=== PATIENT | male | born 1965 | race Caucasian/White ===

== ENCOUNTER 2024-08-16 14:56 | Emergency (ER) | payer OTHER, SELFPAY ==
[2024-08-16 15:01] VITALS: BP 113/75; PULSE 74; RESP 16; TEMP 36.6; O2SAT 99
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
--- OUTSIDE RECORDS SUMMARY | 2024-08-16 17:30 | XMS_ITS | Clinical Summary ---
Author Organization [facility] Address [address] [place] [id number] Care Team Providers Care Division Controller Name Role Phone Unavailable Primary Care Provider Unavailabl e Allergies No known active allergies Medications No known medications Active Problems No known active problems Social History Tobacco Use Types Packs/Day Years Used Date Smoking Tobacco: Never Assessed Sex and Gender Information Value Date Recorded Sex Assigned at Not on file Legal Sex Male 3:28 PM CDT Gender Identity Not on file Sexual Orientation Not on file Last Filed Vital Signs Vital Sign Reading Time Taken Comments Blood Pressure 112/69 06/23/2020 3:46 PM CDT Pulse 76 06/23/2020 3:46 PM CDT Temperature 36.8 C (98.2 F) 06/23/2020 3:46 PM CDT Respiratory Rate 16 06/23/2020 3:46 PM CDT Oxygen Saturation 95% 06/23/2020 3:46 PM CDT Inhaled Oxygen Concentration - - Weight - - Height - - Body Mass Index - - Plan of Treatment Health Maintenance Due Date Last Done Comments DTAP/TDAP/TD VACCINES (1 - Tdap) 1983 COLORECTAL SCREENING 2009 Colorectal Cancer Screening 2009 FIT-DNA Q 3 years 2009 FIT/FOBT Q 1 year 2009 Flex Sig/CT Colonography Q 5 years 2009 ZOSTER VACCINE (1 of 2) 2014 INFLUENZA VACCINE (#1) 2023 RSV VACCINE (60+ or ) (1 - 1-dose 75+ series) 2039 HEPATITIS B VACCINES Aged Out No long er eligible based on patient's age to complete this topic Insurance #1 [place] [id number] [employer] [place] H[place] POS #[address] [place] [id number]
--- OUTSIDE RECORDS SUMMARY | 2024-08-16 17:30 | XMS_ITS | Clinical Summary ---
Author Organization [facility] Address [address] [place] [address] Care Team Providers Care Client Account Representative Name Role Phone Guru Lynch MD Primary Care Provider [phone] Gerardo Champagne MD Unavailable [phone] Abhijit Hall MD Unavailable Allergies No known active allergies Medications ALPRAZolam (XANAX) 1 mg tablet Take 1 tablet (1 mg total) by mouth 3 (three) times a day as needed 3 Active iron,carb/vit C/vit B12/folic (IRON 100 PLUS ORAL) Take 1 tablet by mouth every other day Active escitalopram (LEXAPRO) 20 mg tablet Take 1 tablet (20 mg total) by mouth daily Active acamprosate DR (CAMPRAL) 333 mg EC tablet Take 2 tablets (666 mg total) by mouth 3 (three) times a day 4 Active famotidine (PEPCID) 40 mg tablet Take 1 tablet (40 mg total) by mouth nightly at bedtime. 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 Active omeprazole (PriLOSEC) 40 mg capsule Take 1 capsule (40 mg total) by mouth 2 (two) times a day AM and afternoon Active rosuvastatin (CRESTOR) 40 mg tablet Take 1 tablet (40 mg total) by mouth nightly Active disulfiram (ANTABUSE) 250 mg tabletIndicatio ns:alcoholism Take 1 tablet (250 mg total) by mouth daily Takes at 3 pm Active vitamin E 200 unit capsule Take 1 capsule (200 Units total) by mouth every morning Active cyanocobalamin (Vitamin B-12) 250 mcg tablet Take 1 tablet (250 mcg total) by mouth daily Active dicyclomine (BENTYL) 10 mg capsule Take 1 capsule (10 mg total) by mouth 3 (three) times a day as needed (Abdominal pain) 90 capsule 3 5 Active dicyclomine (BENTYL) 10 mg capsule Take 1 capsule (10 mg total) by mouth 3 (three) times a day as needed 4 08/09/19 25 Discontinu ed(Reorder ) Active Problems Problem Noted Date Diagnosed Date 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 07/24/2024 Diarrhea 07/24/2024 Epigastric pain 07/24/2024 Flatulence 07/24/2024 Dysphagia 07/24/2024 Alcohol induced fatty liver 03/23/2024 Alcohol use disorder, moderate, dependence 03/06 Benign prostatic hyperplasia 12/28/2023 Degeneration of intervertebral disc of lumbosacr al region 12/28/2023 Overview (12/28/2023): L4/L5, L5/S1 Nicotine addiction 12/28/2023 Ruptured disc, thoracic 12/28/2023 BMI 22.0-22.9, adult 12/07/2023 Assessment & Plan (12/07/2023 8:57 AM CDT): BMI is normal, today's instructions and counseling include lifestyle education regarding diet Abdominal symptoms 11/03/2023 Assessment & Plan (11/03/2023 3:41 PM CDT): Complaints of abdominal pain intermittently. Has chronic gastritis and has had heavy alcohol intake. I have instructed him to stop drinking alcohol. Increase omeprazole 40 mg BID for the next 2 weeks. He had some abdominal tenderness for which I recommended a CT scan, he is concerned about radiation and would like to hold off. Discussed that if he has abnormal lab findings today, it may warrant more testing for which he agrees. CBC, CMP, Urinalysis. Fatigue 11/03/2023 Assessment & Plan (11/03/2023 3:43 PM CDT): New problem x 2 days with brain fog, lightheadedness, abdominal symptoms. Work up with blood testing and urine. Follow up based on results. Iron deficiency 11/03/2023 Assessment & Plan (11/03/2023 3:44 PM CDT): Currently on iron 3x/week. Reassess level today with ongoing symptoms. Alcohol use 11/03/2023 Assessment & Plan (11/03/2023 3:43 PM CDT): Currently drinking 4 beers per day. Encouraged cessation. Chronic superficial gastritis without bleeding 1 2022 Assessment & Plan (02/16/2023 5:04 PM POLE INCISOR OPERATOR): He is very concerned about cancer I sent a prescription for omeprazole and I told him to get an upper endoscopy I put orders he also wants a CT scan. He confessed that he has been drinking too much so with more reason he will need a CT scan and the blood that I ordered Change in stool 12/07/2022 Assessment & Plan (12/07/2022 10:54 AM CDT): Check follow up CMP. Reviewed prior LFT lab results from 2 weeks ago and past abdominal CT results. Encouraged maintaining normal weight, daily exercising and reducing alcohol consumption. SVT (supraventricular tachycardia) 11/19/2022 Assessment & Plan (11/20/2022 11:12 AM CDT): Stable, brief SVT only, asymptomatic. Continue same therapy. VT (ventricular tachycardia) 11/19/2022 Assessment & Plan (11/20/2022 11:13 AM CDT): Stable, brief nonsustained VT with normal left ventricular function, asymptomatic. Continue same therapy. Bilateral hearing loss 10/07/2022 Assessment & Plan (10/07/2022 5:10 PM CDT): Chronic hearing loss. No tinnitus. Ear exam is unremarkable. Referral to ENT. BMI 23.0-23.9, adult 04/10/2022 Assessment & Plan (04/10/2022 10:38 AM POLE INCISOR OPERATOR): BMI is normal, today's instructions and counseling include lifestyle education regarding diet Intestinal metaplasia of ant rum of stomach without dysplasia 04/11/2021 Cervical radiculopathy 04/11/2021 Prostate disorder 04/11/2021 Thrombocytopenia, unspecified 04/11/2021 Other primary thrombocytopenia 04/11/2021 Muscle spasms of neck 05/21/2020 Assessment & Plan (05/21/2020 4:26 PM CDT): Spent 50 minutes with patient discussing his current symptoms regarding his neck muscle spasms as well as his GI symptoms. Discussed current treatment measures and previous results from testing. Dr. Navarrtee consulted. Patient to use heat followed by ice 15 minutes of each twice a day to his neck along with diclofenac cream [id number] as directed. Rectal bleeding 04/05/2020 Overview (04/05/2020): Added automatically from request for surgery [id number] Hemorrhoids, internal, thrombosed 02/21/2019 Assessment & Plan (05/21/2020 4:23 PM CDT): Patient to try taking Benefiber as directed to see if this helps soften stools to prevent bleeding from hemorrhoids. May also use preparation H [id number] for rectal irritation or bleeding hemorrhoids. Anorectal pain 02/21/2019 Coronary artery disease invo lving [place] coronary artery of [place] heart without angina pectoris 05/17/2017 Assessment & Plan (11/20/2022 11:12 AM CDT): Stable, mild coronary disease only, without angina. I made no change in his excellent medical regimen today. I asked him to follow up with me annually, or sooner if needed. I again advised him to diet and exercise regularly. Assessment & Plan (11/21/2021 11:08 AM CDT): Stable, mild coronary disease only, without angina. I made no change in his excellent medical regimen today. I asked him to follow up with me annually, or sooner if needed. I again advised him to diet and exercise regularly. Assessment & Plan (11/23/2019 9:45 AM CDT): Stable, mild coronary disease without angina. I made no change in his excellent medical regimen today. I asked him to follow up with me annually, or sooner if needed. I again advised him to diet and exercise regularly. Assessment & Plan (05/18/2017 9:45 AM CDT): Stable, mild without angina. I made no change in his excellent medical regimen today. I asked him to follow up with me annually, or sooner if needed. I again advised him to diet and to exercise regularly. BMI 25.0-25.9,adult 09/11/2016 Assessment & Plan (02/16/2023 5:04 PM POLE INCISOR OPERATOR): BMI is normal, today's instructions and counseling include lifestyle education regarding diet Assessment & Plan (04/11/2021 10:04 AM POLE INCISOR OPERATOR): BMI is normal, today's instructions and counseling include lifestyle education regarding diet Assessment & Plan (03/31/2019 10:19 AM POLE INCISOR OPERATOR): BMI is normal, Today's instructions and counseling include lifestyle education regarding diet and exercise. Assessment & Plan (03/25/2018 10:28 AM POLE INCISOR OPERATOR): BMI is elevated, Today's instructions and counseling include lifestyle education regarding diet and exercise as well as weight loss. Assessment & Plan (03/19/2017 4:59 PM POLE INCISOR OPERATOR): BMI is elevated, Today's instructions and counseling include lifestyle education regarding diet and exercise as well as weight loss. Assessment & Plan (10/20/2016 4:22 PM CDT): Normal Assessment & Plan (09/11/2016 11:44 AM CDT): Normal for the patient B12 deficiency 03/11/2016 Overview (06/11/2016): Vitamin B12 deficiency Assessment & Plan (11/03/2023 3:43 PM CDT): Chronic, on daily supplement. Reassess today. Hypothyroidism 03/11/2016 Overview (06/11/2016): Hypothyroidism Assessment & Plan (02/18/2024 1:29 PM POLE INCISOR OPERATOR): Clinically and biochemically euthyroid Continue levothyroxine 100 mcg daily TSH annually with Dr. Lynch. He will return to endocrine clinic as needed. Assessment & Plan (11/03/2023 3:44 PM CDT): Chronic, low TSH and high T4 on last blood work. Levothyroxine reduced to 100 mcg daily. Reassess levels today. Assessment & Plan (02/12/2023 2:27 PM POLE INCISOR OPERATOR): Uncontrolled, labs in February 2023 showed suppressed TSH elevated free T4. Levothyroxine was appropriately decreased. Continue levothyroxine 112 mcg daily. TSH today. Dose adjustment based on above TSH goal 0.3-4.2. RTC in 1 year Assessment & Plan (10/07/2022 5:09 PM CDT): 57 years old male with history nonobstructive CAD seen for management of hypothyroidism. Recent TFTs showed elevated TSH of 12.1 with normal free T4. Levothyroxine was increased from 100 mcg daily to 125 mcg daily. He takes levothyroxine in the morning with rest of his medications. He endorses intermittent palpitations and brain fog. Plan. 1. Will continue levothyroxine 125 mcg daily. 2. Will repeat TSH in 3 weeks. 3. Discussed TSH of 0.3-4.2. 5. Advised to take levothyroxine in the mornings on empty stomach 30 minutes before breakfast/other medications. Multivitamin, calcium and iron have to be taken 4 hours after levothyroxine. 6. Discussed changing levothyroxine to Synthroid if he remains symptomatic after TSH normalization. 7. All his questions were addressed. 8. Follow-up in 4 months. Assessment & Plan (05/21/2020 4:23 PM CDT): Will check thyroid level today. Patient to continue current dose of levothyroxine until further notification. Assessment & Plan (09/11/2016 11:51 AM CDT): Will continue same medications Hyperlipidemia 03/11/2016 Overview (06/11/2016): Hyperlipidemia Assessment & Plan (02/18/2024 1:29 PM POLE INCISOR OPERATOR): Lab Results Component Value Date LDLCALC 44 12/07/2023 Lipids well controlled. Continue rosuvastatin Assessment & Plan (11/20/2022 11:12 AM CDT): Lipids are well controlled. Continue high-intensity statin therapy. Assessment & Plan (10/07/2022 5:09 PM CDT): Well controlled, LDL 60 Continue rosuvastatin Assessment & Plan (11/21/2021 11:08 AM CDT): Lipids are well controlled. Continue high-intensity statin therapy. Assessment & Plan (11/23/2019 9:45 AM CDT): Lipids are well controlled. Continue high-intensity statin therapy. Assessment & Plan (05/18/2017 9:45 AM CDT): Lipids are well controlled. Continue high-intensity statin therapy. Assessment & Plan (09/11/2016 11:51 AM CDT): Will continue same medications Anxiety 03/11/2016 Overview (06/11/2016): Anxiety Vitamin D deficiency 03/11/2016 Overview (06/11/2016): Vitamin D deficiency Cough 08/14/2015 Assessment & Plan (10/20/2016 4:31 PM CDT): Will rule out pneumonia with x-ray and complete blood count. Prescription for new antibiotics, steroids and new cough medication sent to his pharmacy Hypokalemia 08/14/2015 Lumbago 05/14/2015 Shortness of breath 09/11/2014 Abdominal pain 09/05/2014 Assessment & Plan (11/03/2023 3:42 PM CDT): As above Assessment & Plan (05/21/2020 4:21 PM CDT): Patient to increase Prilosec/omeprazole to 2 tablets daily 30 minutes prior to breakfast. Patient reassured that this does was acceptable to take for longer than 2 weeks as he has read the packaging stating he should not be taking it longer than 14 days. Keep appointment with as scheduled for early June. 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 Continue fluvoxamine. Work up for symptoms as above. Hypercholesterolemia 02/26/2012 Assessment & Plan (02/12/2023 2:28 PM POLE INCISOR OPERATOR): Lipids well controlled. LDL 60 Continue rosuvastatin Resolved Problems Problem Noted Date Diagnosed Date Resolved Date Thyroid activity decreased 05/14/2015 1 04/15/2022 Encounters Date Type Department Care Team Description 08/09/2024 1:45 PM CDT Office Visit [facility] [place] [address] Gerardo Champagne MD Macrocytic anemia (Primary Dx); Thrombocytopenia, secondary; MGUS (monoclonal gammopathy of unknown significance) 08/02/2024 2:15 PM CDT Lab [facility] [address] [place] [phone] Macrocytic anemia; Thrombocytopenia, secondary; MGUS (monoclonal gammopathy of unknown significance) 07/24/2024 12:30 PM CDT Office Visit [facility] [address] [place] [phone] Abhijit Hall MD Coronary artery disease involving [place] coronary artery of [place] heart without angina pectoris (Primary Dx); Mixed hyperlipidemia; Tingling in extremities; Bradycardia 07/04/2024 7:01 AM CDT - 07/04/2024 11:50 AM CDT Emergency [facility] [address] [place] [phone] Cammie Murillo MD Dehydration (Primary Dx); Dizziness Discharge Disposition: Discharge to home or self care 06/27/2024 Orders Only [facility] [facility] [place] [address] [place] [id number] Guru Lynch MD 06/09/2024 5:49 PM CDT - 06/09/2024 9:23 PM CDT Emergency [facility] [address] [place] [phone] Isiah Russell MD Abdominal pain (Primary Dx) Discharge Disposition: Discharge to home or self care from Last 3 Months Immunizations Immunization Administration Dates Next Due Influenza, Quadrivalent, Spl it, Preservative Free, Intradermal 03/11/2016 Influenza, Quadrivalent, Spl it, Preservative Free, Intramuscular 02/16/2023,04/10/2022,04/11/2021,04/05,03/25/2018,11/22/2015 Influenza, Trivalent, Cell Culture-based MDCK, Preservative Free, Antibiotic Free, Intramuscular 01/01/2019,03/21/2013 Influenza, Trivalent, Preser vative Free, Intramuscular 12/07/2023 Influenza, Unspecified 12/23/2018,04/03/2018, Moderna SARS-CoV-2 Monovalen t Vaccination (12+ YRS) 02/11/2021 Tdap 05/10/2023 Surgical History Surgery Date Site/Laterality Comments HEMORRHOID SURGERY hemorrhoidectomy COLONOSCOPY 10/28/2015 Diverticulosis, internal hemorrhoids 10 year recall COLONOSCOPY 03/21/2010 internal hemorrhoids, diverticulosis otherwise normal UPPER GASTROINTESTINAL ENDOSCOPY 03/21/2010 Medical History Medical History Date Comments Adiposity Obesity Disorder of thyroid Thyroid dise ase Hyperlipidemia Hyperlipidemia Dysphagia Colon polyp Coronary artery disease Hypothyroidism Prostate infection Depression Anxiety Family History Medical History Relation Name Comments Coronary artery disease Brother Bernardino jones artery disease; Heart disease Father Cardiovascular disease; Other Other 1 No family histo ry of Cancer, colon; Other Other 2 No family histo ry of Colon polyps; Other Other 3 No family histo ry of Crohn's disease; Other Other 4 No family histo ry of Ulcerative colitis; Other Other 5 No family histo ry of Coronary artery disease, premature; Other Other 6 No family histo ry of Coronary artery disease, premature; Relation Name Status Comments Brother Father Other 1 Other 2 Other 3 Other 4 Other 5 Other 6 Social History Tobacco Use Types Packs/Day Years Used Date Smoking Tobacco: Former Smokeless Tobacco: Never Tobacco Cessation:Counseling Given: Not Answered Alcohol Use Standard Drinks/Week Comments Yes 0 (1 standard drink = 0.6 oz pur e alcohol) rarely. AUDIT-C Answer Date Recorded Frequency of Alcohol Consumption Not on file 03/23/2024 Q2: How many drinks containi ng alcohol do you have on a typical day when you are drinking? Patient does not drink Frequency of Binge Drinking Not on file 03/08 PHQ-2 Answer Date Recorded PHQ-2 Total Score (If total score is 3 or more points, staff should administer the PHQ-9) 0 02/18/2024 Personal Safety Answer Date Recorded Have you ever been in or are you currently in a harmful physical or emotional relationship or is someone making you feel afraid or unsafe? 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 INCISOR OPERATOR Gender Identity Not on file Sexual Orientation Not on file Obstetrics History Last Filed Vital Signs Vital Sign Reading Time Taken Comments Blood Pressure 108/67 08/09/2024 2:06 PM CDT Pulse 67 08/09/2024 2:06 PM CDT Temperature 36.6 C (97.8 F) 08/09/2024 2:06 PM CDT Respiratory Rate 18 08/09/2024 2:06 PM CDT Oxygen Saturation 99% 08/09/2024 2:06 PM CDT Inhaled Oxygen Concentration - - Weight 64.3 kg (141 lb 12.8 oz) 08/09/2024 2:06 PM CDT Height 173.4 cm (5' 8.25) 08/09/2024 2:06 PM CD T Body Mass Index 21.4 08/09/2024 2:06 PM CDT Plan of Treatment Scheduled Procedures Name Priority Associated Diagnoses Date/Ti me ESOPHAGOGASTRODUODENOSCOPY Dysphagia Health Maintenance Due Date Last Done Comments Hepatitis B Screening 1982 Zoster Vaccine (1 of 2) 2014 Covid-19 Vaccine ( season) 2023 02/11/2021, 06/14/2020, 05/17/2020 Regular Well Visit/Exam 18-64 12/06/2024 12/07/2023, 04/10/2022, 04/11/2021, Additional history exists Depression Screening 02/17/2025 02/18/2024, 12/07/2023, 02/12/2023, Additional history exists Prostate Cancer Screening-PSA 12/06/2025 12/07/2023, 04/10/2022, 04/11/2021, Additional history exists Colon Cancer Screening-Colonoscopy 2030 2020, 10/28/2015, 10/28/2015 DTaP/Tdap/Td Vaccine (2 - Td or Tdap) 05/09/2033 05/10/2023 Colon Cancer Screening-CT Colonography Discontinued 2020, 10/28/2015, 10/28/2015 Colon Cancer Screening-DNA Stool Discontinued 2020, 10/28/2015, 10/28/2015 Colon Cancer Screening-FIT Discontinued 04/19, 10/28/2015, 10/28/2015 Colon Cancer Screening-Sigmoidoscopy Discontinued 2020, 10/28/2015, 10/28/2015 Hepatitis C Screening Completed 07/11/2021, 019 Influenza Vaccine Completed 12/07/2023, , 04/10/2022, Additional history exists Pneumococcal vaccine <65 Aged Out No longer eligible based on patient's age to complete this topic Procedures Procedure Name Priority Date/Time Associated Diagnosis Comments IMMUNOTYPING Routine 08/02/2024 2:28 PM CDT Macrocytic anemia Thrombocytopenia, secondary MGUS (monoclonal gammopathy of unknown significance) EGFR Routine 08/02/2024 2:28 PM CDT Macrocytic anemia Thrombocytopenia, secondary MGUS (monoclonal gammopathy of unknown significance) DIFFERENTIAL AUTO Routine 08/02/2024 2:2 8 PM CDT Macrocytic anemia Thrombocytopenia, secondary MGUS (monoclonal gammopathy of unknown significance) CBC WITH AUTO DIFFERENTIAL Routine 08/02/2024 2:28 PM CDT Macrocytic anemia Thrombocytopenia, secondary MGUS (monoclonal gammopathy of unknown significance) RENAL FUNCTION PANEL Routine 08/02/2024 2:28 PM CDT Macrocytic anemia Thrombocytopenia, secondary MGUS (monoclonal gammopathy of unknown significance) PROTEIN ELECTROPHORESIS, WITH REFLEX, SERUM Routine 08/02/2024 2:28 PM CDT Macrocytic anemia Thrombocytopenia, secondary MGUS (monoclonal gammopathy of unknown significance) IMMUNOGLOBULIN PROFILE Routine 2:28 PM CDT Macrocytic anemia Thrombocytopenia, secondary MGUS (monoclonal gammopathy of unknown significance) IMMUNOGLOBULIN FREE LIGHT CHAINS Routine 08/02/2024 2:28 PM CDT Macrocytic anemia Thrombocytopenia, secondary MGUS (monoclonal gammopathy of unknown significance) VITAMIN B12 Routine 08/02/2024 2:28 PM CDT Macrocytic anemia Thrombocytopenia, secondary MGUS (monoclonal gammopathy of unknown significance) FOLATE Routine 08/02/2024 2:28 PM CDT Macrocytic anemia Thrombocytopenia, secondary MGUS (monoclonal gammopathy of unknown significance) IRON PROFILE W/ IBC Routine 08/02/2024 2 :28 PM CDT Macrocytic anemia Thrombocytopenia, secondary MGUS (monoclonal gammopathy of unknown significance) FERRITIN Routine 08/02/2024 2:28 PM CDT Macrocytic anemia Thrombocytopenia, secondary MGUS (monoclonal gammopathy of unknown significance) XR CHEST PA LATERAL 2 VIEWS ED 07/04/2024 12:12 PM CDT DRUGS OF ABUSE SCREEN, URINE WITHOUT CONFIRMATION STAT 07/04/2024 10:19 AM CDT URINALYSIS AND REFLEX TO MICROSCOPIC AND CULTURE STAT 07/04/2024 10:[address] HEAD WO CONTRAST ED 07/04/2024 9 :38 AM CDT TROPONIN T HIGH-SENSITIVITY 2-HOUR Timed 07/04/2024 9:23 AM CDT THYROID FUNCTION CASCADE STAT 07/04/2024 7:27 AM CDT EGFR STAT 07/04/2024 7:27 AM CDT T4, FREE STAT 07/04/2024 7:27 AM CDT DIFFERENTIAL AUTO STAT 07/04/2024 7:2 7 AM CDT ETHANOL STAT 07/04/2024 7:27 AM CDT TROPONIN T HIGH-SENSITIVITY SERIES (BASELINE, 2HR, 4HR, 6HR) STAT 07/04/2024 7:27 AM CDT LIPASE STAT 07/04/2024 7:27 AM CDT COMPREHENSIVE METABOLIC PANEL STAT 07/04/2024 7:27 AM CDT CBC WITH AUTO DIFFERENTIAL STAT 07/04/2024 7:27 AM CDT ECG 12-LEAD STAT 07/04/2024 7:06 AM CDT GI - RESULT 06/27/2024 CT ABDOMEN PELVIS W CONTRAST ED 06/09/2024 7:58 PM CDT EGFR STAT 06/09/2024 5:28 PM CDT DIFFERENTIAL AUTO STAT 06/09/2024 5:2 8 PM CDT LIPASE STAT 06/09/2024 5:28 PM CDT COMPREHENSIVE METABOLIC PANEL STAT 06/09/2024 5:28 PM CDT CBC WITH AUTO DIFFERENTIAL STAT 06/09/2024 5:28 PM CDT URINALYSIS AND REFLEX TO MICROSCOPIC AND CULTURE STAT 06/09/2024 5:28 PM CDT ECG 12-LEAD STAT 06/09/2024 5:20 PM CDT PSA SCREEN Routine 12/07/2023 9:14 AM CDT Screening for malignant neoplasm of prostate HEPATITIS PANEL, ACUTE Routine 10:17 AM CDT Macrocytic anemia Thrombocytopenia, secondary COLONOSCOPY 2020 12:08 PM POLE INCISOR OPERATOR from Last 3 Months or Most Recently Relevant to Health Maintenance Results * Immunotyping, serum with interpretation (08/02/2024 2:28 PM CDT) Immunosubtraction See Comment Comment:Immunotyping Interpr etation: IgG Lambda Paraprotein Blood 08/02/2024 2:28 PM CDT 08/02/2024 2:48 PM CDT Narrative [facility] - 08/03/2024 12:23 PM CDT Reflex Immunotyping, Ser us Gerardo Champagne MD LAB BLOOD ORDERABLES Fin al Result [facility] [address] [facility] [address] [place] [address] * Immunoglobulin profile (08/02/2024 2:28 PM CDT) Immunoglobulin G 763 700 - 1,600 mg/dL Immunoglobulin A 149 70 - 400 mg/dL [facility] Immunoglobulin M 56 40 - 230 mg/dL [facility] Blood 08/02/2024 2:28 PM CDT 08/02/2024 2:48 PM CDT Gerardo Champagne MD LAB BLOOD ORDERABLES Fin al Result Performing Organization Address [facility] Co de Phone Number [facility] [address] [place] [address] * eGFR (08/02/2024 2:28 PM CDT) Pathologist [facility] eGFR >90 >=60 mL/min/1. 73 m2 Comment: Interpretive Data Reference Interval Normal >/= 90 mL/min/1.73m2 Mildly decreased* 60 - 89 mL/min/1.73m2 Mildly to moderately decreased 45 - 59 mL/min/1.73m2 Moderately to severely decreased 30 - 44 mL/min/1.73m2 Severely decreased 15 - 29 mL/min/1.73m2 Kidney Failure < 15 mL/min/1.73m2 *Relative to young adult level Estimated glomerular filtration rate is determined by the 2020 CKD-EPI equation recommended by the National Kid[employer] (A Unifying Approach to GFR Estimation: Recommendations of the NKF-ASK Task Force on Reassessing the Inclusion of Race in Diagnosing Kidney Disease, JASN 2020). The CKD-EPI equation should not be used for patients with unstable renal function and has not been validated in children and those over 70. Current interpretive data was last reviewed 2021. Blood 08/02/2024 2:28 PM CDT 08/02/2024 2:48 PM CDT us Gerardo Champagne MD LAB BLOOD ORDERABLES Fin al Result [facility] [address] [place] [address] * Differential, auto (08/02/2024 2:28 PM CDT) Neutrophil abs 1.75 1.50 - 6.50 K/cumm Imm gran abs 0.01 0.00 - 0.10 K/cumm [facility] Lymphocyte abs 0.89 0.80 - 3.30 K/cumm [facility] Monocyte abs 0.33 0.20 - 0.80 K/cumm [facility] Eosinophil abs 0.07 0.00 - 0.50 K/cumm [facility] Basophil abs 0.03 0.00 - 0.10 K/cumm [facility] Neutrophil pct 56.8 % [facility] Comment: Interpretive Data Percent cell count reference ranges are not reported, since discordance with absolute values may lead to misinterpretation of CBC data. Current Interpretive Data was last revised on 2017. Imm gran pct 0.3 % [facility] Comment: Interpretive Data Percent cell count reference ranges are not reported, since discordance with absolute values may lead to misinterpretation of CBC data. Current Interpretive Data was last revised on 2017. Lymphocyte pct 28.9 % [facility] Comment: Interpretive Data Percent cell count reference ranges are not reported, since discordance with absolute values may lead to misinterpretation of CBC data. Current Interpretive Data was last revised on 2017. Monocyte pct 10.7 % [facility] Comment: Interpretive Data Percent cell count reference ranges are not reported, since discordance with absolute values may lead to misinterpretation of CBC data. Current Interpretive Data was last revised on 2017. Eosinophil pct 2.3 % [facility] Comment: Interpretive Data Percent cell count reference ranges are not reported, since discordance with absolute values may lead to misinterpretation of CBC data. Current Interpretive Data was last revised on 2017. Basophil pct 1.0 % [facility] Comment: Interpretive Data Percent cell count reference ranges are not reported, since discordance with absolute values may lead to misinterpretation of CBC data. Current Interpretive Data was last revised on 2017. Blood 08/02/2024 2:28 PM CDT 08/02/2024 2:28 PM CDT us Gerardo Champagne MD LAB BLOOD ORDERABLES Fin al Result [facility] [address] [place] [address] * Immunoglobulin free light chains (08/02/2024 2:28 PM CDT) [place]/Lambda ratio BJ 0.98 0.26 - 1.65 Comment: Interpretive Data The Binding Site FreeLite assay procedure was used. Results from different manufacturers or methods may not be comparable. Serial testing should be performed using the same methods and instrumentation. Current Interpretive Data was last revised on 2023. Testing performed by: [facility], [address] [place]., [address] [place] free light chain BJH 1.23 0.33 - 1.94 mg/dL [facility] Comment: Interpretive Data The Binding Site FreeLite assay procedure was used. Results from different manufacturers or methods may not be comparable. Serial testing should be performed using the same methods and instrumentation. Current Interpretive Data was last revised on 2023. Testing performed by: [facility], [address] [place]., [address] Lambda free light chain BJH 1.25 0.57 - 2.63 mg/dL [facility] Comment: Interpretive Data The Binding Site FreeLite assay procedure was used. Results from different manufacturers or methods may not be comparable. Serial testing should be performed using the same methods and instrumentation. Current Interpretive Data was last revised on 2023. Testing performed by: [facility], [address] [place]., [address] Blood 08/02/2024 2:28 PM CDT 08/02/2024 6:54 PM CDT Gerardo Champagne MD LAB BLOOD ORDERABLES Fin al Result Performing Organization Address [facility] Co de Phone Number [facility] [address] [facility] [address] [place] [address] * Iron profile w/ IBC (08/02/2024 2:28 PM CDT) [facility] Iron 80 50 - 150 mcg/dL TIBC 276 250 - 400 mcg/dL [facility] Transferrin saturation 29 20 - 50 % [facility] Blood 08/02/2024 2:28 PM CDT 08/02/2024 2:48 PM CDT Gerardo Champagne MD LAB BLOOD ORDERABLES Fin al Result Performing Organization Address [facility] de Phone Number [facility] [address] Department [place] [address] [address] * (ABNORMAL) CBC with auto differential (08/02/2024 2:28 PM CDT) [facility] WBC 3.04(L) 3.80 - 9.90 K/cumm Hgb 11.7(L) 13.0 - 17.5 g/dL [facility] Hct 33.4(L) 38.9 - 50.3 % [facility] Plt 111(L) 150 - 400 K/cumm [facility] MPV 8.6(L) 9.1 - 12.3 fL [facility] RBC 3.53(L) 4.30 - 5.80 M/cumm [facility] MCV 94.6 81.3 - 96.4 fL [facility] MCH 33.1 27.1 - 33.3 pg [facility] MCHC 35.0 32.3 - 35.7 g/dL [facility] RDW CV 11.9 11.1 - 14.9 % [facility] RDW SD 40.9 35.7 - 48.1 fL [facility] NRBC abs 0.00 0.00 - 0.01 K/cumm [facility] ANC Prelim 1.75 1.50 - 6.50 K/cumm [facility] Comment: Interpretive Data The rapid ANC is a preliminary automated count and may vary from the final ANC (Neut Abs) reported in the WBC differential that follows. Current interpretive data was last revised 2024. Blood 08/02/2024 2:28 PM CDT 08/02/2024 2:28 PM CDT Gerardo Champagne MD LAB BLOOD ORDERABLES Fin al Result Performing Organization Address City/[facility]/ZIP Co de Phone Number [facility] [address] [place] [address] * (ABNORMAL) Protein electrophoresis with reflex, serum with interpretation (08/02/2024 2:28 PM CDT) Protein, sr 5.7(L) 6.2 - 8.2 g/dL Albumin 3.5 3.2 - 5.0 g/dL [facility] Alpha-1 globulin 0.3 0.2 - 0.4 g/dL [facility] Alpha-2 globulin 0.6 0.5 - 1.0 g/dL [facility] Beta-1 globulin 0.4 0.3 - 0.6 g/dL [facility] Beta-2 globulin 0.3 0.2 - 0.6 g/dL [facility] Gamma globulin 0.6 0.5 - 1.7 g/dL [facility] Rstr Pk Gamma 0.2(H) 0.0 - 0.0 g/dL [facility] SPEP interp See Comment [facility] Comment:SPEP INTERPRETATION: Abnormal restricted peak in gamma region. History of monoclonal protein. Immunotyping See Immunotyping Results [facility] Blood 08/02/2024 2:28 PM CDT 08/02/2024 2:48 PM CDT Gerardo Champagne MD LAB BLOOD ORDERABLES Fin al Result Performing Organization Address [facility] Co de Phone Number [facility] [address] [facility] [place] [address] [place] [address] * Folate (08/02/2024 2:28 PM CDT) Pathologist [facility] Folic acid 8.3 >=5.0 ng/mL Blood 08/02/2024 2:28 PM CDT 08/02/2024 2:48 PM CDT Gerardo Champagne MD LAB BLOOD ORDERABLES Fin al Result Performing Organization Address [facility] Co de Phone Number [facility] [address] [facility] [address] [place] [address] * Ferritin (08/02/2024 2:28 PM CDT) [facility] Ferritin 300 30 - 400 ng/mL Blood 08/02/2024 2:28 PM CDT 08/02/2024 2:48 PM CDT Gerardo Champagne MD LAB BLOOD ORDERABLES Fin al Result Performing Organization Address [facility] Co de Phone Number [facility] [address] [facility] [address] [address] * Vitamin B12 (08/02/2024 2:28 PM CDT) [facility] Vitamin B12 608 230 - 1,250 pg/mL Blood 08/02/2024 2:28 PM CDT 08/02/2024 2:48 PM CDT Gerardo Champagne MD LAB BLOOD ORDERABLES Fin al Result Performing Organization Address [facility] Co de Phone Number [facility] [address] [facility] [place] [address] [place] [address] * Renal function panel (08/02/2024 2:28 PM CDT) [facility] Sodium 141 135 - 145 mmol/L Potassium, pl 4.2 3.3 - 4.9 mmol/L [facility] Chloride 104 97 - 110 mmol/L [facility] CO2 26 22 - 32 mmol/L [facility] Anion gap 11 2 - 15 mmol/L [facility] BUN 12 6 - 25 mg/dL [facility] Creatinine 0.88 0.80 - 1.30 mg/dL [facility] Glucose 100 70 - 199 mg/dL [facility] Comment: Interpretive Data Fasting glucose >/= 126 mg/dl is diagnostic for diabetes. Fasting is defined as no caloric intake for at least 8 hours. Fasting glucose between 100 mg/dl to 125 mg/dl is diagnostic of prediabetes. In a patient with classic symptoms of hyperglycemia or hyperglycemic crisis, a random glucose >/= 200 mg/dl is diagnostic for diabetes. In the absence of unequivocal hyperglycemia, results should be confirmed by repeat testing. The classification and Diagnosis of Diabetes Diabetes Care 2021; 46: S19-S40. Current interpretive data was last revised 2022. Calcium 9.2 8.5 - 10.3 mg/dL [facility] Phosphorus, pl 3.2 2.3 - 4.5 mg/dL [facility] Albumin 4.0 3.5 - 5.0 g/dL [facility] Blood 08/02/2024 2:28 PM CDT 08/02/2024 2:48 PM CDT us Gerardo Champagne MD LAB BLOOD ORDERABLES Fin al Result [facility] [address] [place] [address] * XR Chest Pa Lateral 2 Vw (07/04/2024 12:12 PM CDT) Anatomical Region Laterality Modality Body, Chest N/A Computed Radiogr aphy 07/04/2024 1:58 PM CDT Impressions 07/04/2024 1:58 PM CDT Comparison chest radiograph 09/11/2022. The lungs are clear, specifically there is no focal consolidation or pulmonary edema. There is no pleural effusion or pneumothorax. The heart and mediastinal contours are within normal limits. Electronically signed by: Garrick Valdez MD, PHD Narrative 07/04/2024 1:58 PM CDT EXAMINATION: XR CHEST PA LATERAL 2 VIEWS Procedure Note Garrick Valdez MD PhD - 07/04/2024 EXAMINATION: XR CHEST PA LATERAL 2 VIEWS IMPRESSION: Comparison chest radiograph 09/11/2022. The lungs are clear, specifically there is no focal consolidation or pulmonary edema. There is no pleural effusion or pneumothorax. The heart and mediastinal contours are within normal limits. Electronically signed by: Garrick Valdez MD, PHD Cammie Murillo MD IMG XR PROCEDURES Final Re sult * Urinalysis reflex to microscopic and culture Urine (07/04/2024 10:19 AM CDT) Color, ur Yellow Yellow Clarity, ur Clear Clear [facility] Specific gravity, ur 1.017 1.003 - 1.030 [facility] pH, urine 7.0 [facility] Comment: Interpretive Data U rine pH is affected by diet, medications, systemic acid-base disturbances, and renal tubular function. pH may affect urinary stone formation. For example, urine pH below 6.0 may help reduce the tendency for calcium phosphate stones and pH greater than 6.0 may reduce the tendency for uric acid stone formation. Source: [facility] [address] Current Interpretive Data was last revised on 2017 Protein, ur ql Negative Negative [facility] Glucose, ur ql Negative Negative [facility] Ketones, ur Negative Negative [facility] Bilirubin, ur Negative Negative [facility] Blood, ur Negative Negative [facility] Urobilinogen, ur <2.0 <2.0 mg/dL [facility] Nitrite, ur Negative Negative [facility] Leukocyte esterase, ur Negative Negative [facility] UA reflex comment Reflex conditions for microscopic UA and culture not met. [facility] Urine 07/04/2024 10:1 9 AM CDT 07/04/2024 10:24 AM CDT us Cammie Murillo MD LAB MICROBIOLOGY - GENERAL ORDERABLES Final Result [facility] [address] [place] [address] * (ABNORMAL) Drugs of Abuse Screen, Urine without Confirmation (07/04/2024 10:19 AM CDT) Amphetamine, ur Not Detected CutOff 500ng/mL Comment: Interpretive Data - Amphetamines: Samples containing greater than 500 ng/mL d-methamphetamine or other cross-reacting amphetamine compounds are reported as positive. Amphetamine immunoassays are subject to significant false positive rates due to cross-reactivity of non-amphetamine drugs. Confirmatory testing required for definitive results. Current Interpretive Data was last reviewed 2022. Barbiturates, ur Not Detected CutOff 200ng/mL [facility] Comment: Interpretive Data - Barbiturates: Samples containing greater than 200 ng/mL secobarbital or other cross-reacting barbiturate compounds are reported as positive. False positive and false negative results are possible. Confirmatory testing required for definitive results. Current Interpretive Data was last reviewed 2022. Benzodiazepines, ur Screen Positive, presumptive (A) CutOff 100ng/mL [facility] Comment: Interpretive Data - Benzodiazepines: Samples containing greater than 100 ng/mL nordiazepam or other cross-reacting compounds are reported as positive. False positive and false negative results are possible. Confirmatory testing required for definitive results. Current Interpretive Data was last reviewed 2022. Cannabinoids, ur Not Detected CutOff 50 ng/mL [facility] Comment: Interpretive Data - Cannabinoids: Samples containing greater than 50 ng/mL delta-9 THC -COOH or other cross- reacting compounds are reported as positive. False positive and false negative results are possible. Confirmatory testing required for definitive results. Current Interpretive Data was last reviewed 2022. Cocaine, ur Not Detected CutOff 150ng/mL [facility] Comment: Interpretive Data - Cocaine: Samples containing greater than 150 ng/mL benzoylecgonine or other cross- reacting compounds are reported as positive. False positive and false negative results are possible. Confirmatory testing required for definitive results. Current Interpretive Data was last reviewed 2022. Fentanyl, Ur Not Detected CutOff 5 ng/mL [facility] Comment: Interpretive Data - Fentanyl: Samples containing greater than 5 ng/mL norfentanyl, fentanyl, or other cross-reacting fentanyl compounds are reported as positive. False positive and false negative results are possible. Confirmatory testing required for definitive results. Current Interpretive Data was last reviewed 2023. Methadone, ur Not Detected CutOff 300ng/mL [facility] Comment: Interpretive Data - Methadone: Samples containing greater than 300 ng/mL d,l-methadone or other cross-reacting compounds are reported as positive. False positive and false negative results are possible. Confirmatory testing required for definitive results. Current Interpretive Data was last reviewed 2022. Opiates, ur Not Detected CutOff 300ng/mL [facility] Comment: Interpretive Data - Opiates: Samples containing greater than 300 ng/mL morphine or other cross-reacting compounds are reported as positive. False positive and false negative results are possible. Confirmatory testing required for definitive results. Current Interpretive Data was last reviewed 2022. Oxycodone, ur Not Detected CutOff 100ng/mL [facility] Comment: Interpretive Data - Oxycodone: Samples containing greater than 100 ng/mL oxycodone or other cross-reacting compounds are reported as positive. False positive and false negative results are possible. Confirmatory testing required for definitive results. Current Interpretive Data was last reviewed 2022. Phencyclidine, ur Not Detected CutOff 25 ng/mL [facility] Comment: Interpretive Data - Phencyclidine: Samples containing greater than 25 ng/mL phencyclidine or other cross-reacting compounds are reported as positive. False positive and false negative results are possible. Confirmatory testing required for definitive results. Current Interpretive Data was last reviewed 2022. Urine Creatinine 105 mg/dL [facility] Comment: Interpretive Data Urine Creatinine: < 10 mg/dL is extremely dilute = or > 10 but < 20 mg/dL is dilute = or > 20 mg/dL is normal Current Interpretive Data was last revised on 2017. Urine 07/04/2024 10:1 9 AM CDT 07/04/2024 7:17 PM CDT Narrative [facility] - 07/04/2024 7:50 PM CDT Drug of Abuse screening is performed by immunoassay for medical purposes only. This is not to be used for Pain Management purposes. us Cammie Murlilo MD LAB URINE ORDERABLES Final Result [facility] [address] [place] [address] * CT Head WO Contrast (07/04/2024 9:38 AM CDT) Anatomical Region Laterality Modality Head and Neck N/A Computed Tomogra phy 07/04/2024 9:49 AM CDT Impressions 07/04/2024 9:57 AM CDT No acute intracranial process. Dictated by: Ari Chatman D.O. The radiology attending physician has personally reviewed this study, and had reviewed and/or edited this written report and agrees with it. Electronically signed by: Shahbaz Eckert M.D. Narrative 07/04/2024 9:57 AM CDT EXAMINATION: CT head without contrast HISTORY: Dizziness TECHNIQUE: CT of the head was performed with images acquired from skull base to vertex without intravenous contrast. COMPARISON: CT head 01/09/2022 FINDINGS: There is no acute intracranial hemorrhage. Ventricles are of normal size and morphology. No mass effect or midline shift is present. The frey-white matter differentiation is normal. The visualized portions of the orbits are normal. The visualized portions of the mastoids are normal. The visualized portions of the paranasal sinuses are normal. No fractures are identified. Procedure Note Shahbaz Eckert MD - 07/04/2024 EXAMINATION: CT head without contrast HISTORY: Dizziness TECHNIQUE: CT of the head was performed with images acquired from skull base to vertex without intravenous contrast. COMPARISON: CT head 01/09/2022 FINDINGS: There is no acute intracranial hemorrhage. Ventricles are of normal size and morphology. No mass effect or midline shift is present. The frey-white matter differentiation is normal. The visualized portions of the orbits are normal. The visualized portions of the mastoids are normal. The visualized portions of the paranasal sinuses are normal. No fractures are identified. IMPRESSION: No acute intracranial process. Dictated by: Ari Chatman D.O. The radiology attending physician has personally reviewed this study, and had reviewed and/or edited this written report and agrees with it. Electronically signed by: Shahbaz Eckert M.D. Cammie Murillo MD IMG CT PROCEDURES Final Re sult * Troponin T high-sensitivity 2-hour (07/04/2024 9:23 AM CDT) Trop T hs 8 <=22 ng/L Comment: Interpretive Data For further hscTnT resources including the diagnostic algorithm and an aid in interpretation, copy and paste this link: [email or web address]org/show/[email or web address] Current Interpretive Data last revised 2020. Trop T hs delta 1 ng/L [facility] Trop T hs interp Insignificant [facility] Blood 07/04/2024 9:23 AM CDT 07/04/2024 9:30 AM CDT Result [facility] Cammie Murillo MD LAB BLOOD ORDERABLES Final Result Performing Organization Address [facility] Co de Phone Number [facility] [address] [place] [address] * Troponin T high-sensitivity series (baseline, 2hr, 4hr, 6hr) (07/04/2024 7:27 AM CDT) Trop T hs 7 <=22 ng/L Comment: Interpretive Data For further hscTnT resources including the diagnostic algorithm and an aid in interpretation, copy and paste this link: [email or web address] ([employer]org/show/hsTrop Current Interpretive Data last revised 2020. Blood 07/04/2024 7:27 AM CDT 07/04/2024 7:42 AM CDT Cammie Murillo MD LAB BLOOD ORDERABLES Final Result Performing Organization Address City/[facility]/ZIP Co de Phone Number [facility] [address] [place] [address] * eGFR (07/04/2024 7:27 AM CDT) Pathologist [facility] eGFR >90 >=60 mL/min/1. 73 m2 Comment: Interpretive Data Reference Interval Normal >/= 90 mL/min/1.73m2 Mildly decreased* 60 - 89 mL/min/1.73m2 Mildly to moderately decreased 45 - 59 mL/min/1.73m2 Moderately to severely decreased 30 - 44 mL/min/1.73m2 Severely decreased 15 - 29 mL/min/1.73m2 Kidney Failure < 15 mL/min/1.73m2 *Relative to young adult level Estimated glomerular filtration rate is determined by the 2020 CKD-EPI equation recommended by the National Kidney [employer] (A Unifying Approach to GFR Estimation: Recommendations of the NKF-ASK Task Force on Reassessing the Inclusion of Race in Diagnosing Kidney Disease, JASN 2020). The CKD-EPI equation should not be used for patients with unstable renal function and has not been validated in children and those over 70. Current interpretive data was last reviewed 2021. Blood 07/04/2024 7:27 AM CDT 07/04/2024 7:42 AM CDT us Cammie Murillo MD LAB BLOOD ORDERABLES Final Result Performing Organization Address [facility] Co de Phone Number [facility] [address] [place] [address] * Differential, auto (07/04/2024 7:27 AM CDT) Pathologist [facility] Neutrophil abs 2.59 1.50 - 6.50 K/cumm Imm gran abs 0.01 0.00 - 0.10 K/cumm [facility] Lymphocyte abs 1.60 0.80 - 3.30 K/cumm [facility] Monocyte abs 0.71 0.20 - 0.80 K/cumm [facility] Eosinophil abs 0.11 0.00 - 0.50 K/cumm [facility] Basophil abs 0.04 0.00 - 0.10 K/cumm [facility] Neutrophil pct 51.2 % [facility] Comment: Interpretive Data Percent cell count reference ranges are not reported, since discordance with absolute values may lead to misinterpretation of CBC data. Current Interpretive Data was last revised on 2017. Imm gran pct 0.2 % [facility] Comment: Interpretive Data Percent cell count reference ranges are not reported, since discordance with absolute values may lead to misinterpretation of CBC data. Current Interpretive Data was last revised on 2017. Lymphocyte pct 31.6 % [facility] Comment: Interpretive Data Percent cell count reference ranges are not reported, since discordance with absolute values may lead to misinterpretation of CBC data. Current Interpretive Data was last revised on 2017. Monocyte pct 14.0 % [facility] Comment: Interpretive Data Percent cell count reference ranges are not reported, since discordance with absolute values may lead to misinterpretation of CBC data. Current Interpretive Data was last revised on 2017. Eosinophil pct 2.2 % [facility] Comment: Interpretive Data Percent cell count reference ranges are not reported, since discordance with absolute values may lead to misinterpretation of CBC data. Current Interpretive Data was last revised on 2017. Basophil pct 0.8 % [facility] Comment: Interpretive Data Percent cell count reference ranges are not reported, since discordance with absolute values may lead to misinterpretation of CBC data. Current Interpretive Data was last revised on 2017. Blood 07/04/2024 7:27 AM CDT 07/04/2024 7:41 AM CDT us Cammie Murillo MD LAB BLOOD ORDERABLES Final Result [facility] [address] Department [place] [address] * (ABNORMAL) Thyroid Function [place] (07/04/2024 7:27 AM CDT) TSH 0.26(L) 0.30 - 4.20 mcIUnit/mL Blood 07/04/2024 7:27 AM CDT 07/04/2024 7:42 AM CDT Result [facility] Cammie Murillo MD LAB BLOOD ORDERABLES Final Result Performing Organization Address [facility]/ZIP Co de Phone Number [facility] [address] [place] [address] * (ABNORMAL) CBC with auto differential (07/04/2024 7:27 AM CDT) Pathologist [facility] WBC 5.06 3.80 - 9.90 K/cumm Hgb 13.6 13.0 - 17.5 g/dL [facility] Hct 38.8(L) 38.9 - 50.3 % [facility] Plt 158 150 - 400 K/cumm [facility] MPV 9.5 9.1 - 12.3 fL [facility] RBC 4.10(L) 4.30 - 5.80 M/cumm [facility] MCV 94.6 81.3 - 96.4 fL [facility] MCH 33.2 27.1 - 33.3 pg [facility] MCHC 35.1 32.3 - 35.7 g/dL [facility] RDW CV 11.4 11.1 - 14.9 % [facility] RDW SD 39.4 35.7 - 48.1 fL [facility] NRBC abs 0.00 0.00 - 0.01 K/cumm [facility] Blood 07/04/2024 7:27 AM CDT 07/04/2024 7:41 AM CDT Cammie Murillo MD LAB BLOOD ORDERABLES Final Result [facility] [address] Department [address] [place], [place] [id number] * (ABNORMAL) T4, free (07/04/2024 7:27 AM CDT) Free T4 1.75(H) 0.90 - 1.70 ng/dL Blood 07/04/2024 7:27 AM CDT 07/04/2024 7:42 AM CDT Narrative [facility] - 07/04/2024 8:37 AM CDT This test was reflexed from a TSH result. Cammie Murillo MD LAB BLOOD ORDERABLES Final Result Performing Organization Address [facility] Co de Phone Number [facility] [address] [facility] [address] [place], [place] [id number] * Lipase (07/04/2024 7:27 AM CDT) Pathologist [facility] Lipase 39 10 - 99 Units/L Blood 07/04/2024 7:27 AM CDT 07/04/2024 7:42 AM CDT Cammie Murillo MD LAB BLOOD ORDERABLES Final Result Performing Organization Address [facility] de Phone Number [facility] [address] [facility] [address] [place] [address] * Ethanol (07/04/2024 7:27 AM CDT) Pathologist [facility] Ethanol <10 <=10 mg/dL Comment: Interpretive Data Legal limit of intoxication > or = 80 mg/dL Levels > or = 400 mg/dL are potentially TOXIC. Current interpretive data was last revised on 2018. Blood 07/04/2024 7:27 AM CDT 07/04/2024 7:42 AM CDT Cammie Murillo MD LAB BLOOD ORDERABLES Final Result Performing Organization Address [facility] Co de Phone Number [facility] [address] [facility] [address] [place], [place] [id number] * (ABNORMAL) Comprehensive metabolic panel (07/04/2024 7:27 AM CDT) Pathologist [facility] Sodium 141 135 - 145 mmol/L Potassium, pl 3.9 3.3 - 4.9 mmol/L [facility] Chloride 106 97 - 110 mmol/L [facility] CO2 22 22 - 32 mmol/L [facility] Anion gap 13 2 - 15 mmol/L [facility] BUN 14 6 - 25 mg/dL [facility] Creatinine 0.73(L) 0.80 - 1.30 mg/dL [facility] Glucose 90 70 - 199 mg/dL [facility] Comment: Interpretive Data Fasting glucose >/= 126 mg/dl is diagnostic for diabetes. Fasting is defined as no caloric intake for at least 8 hours. Fasting glucose between 100 mg/dl to 125 mg/dl is diagnostic of prediabetes. In a patient with classic symptoms of hyperglycemia or hyperglycemic crisis, a random glucose >/= 200 mg/dl is diagnostic for diabetes. In the absence of unequivocal hyperglycemia, results should be confirmed by repeat testing. The classification and Diagnosis of Diabetes Diabetes Care 2021; 46: S19-S40. Current interpretive data was last revised 2022. Calcium 8.9 8.5 - 10.3 mg/dL [facility] Bilirubin, total 0.6 0.1 - 1.2 mg/dL [facility] Protein, pl 6.2(L) 6.5 - 8.5 g/dL [facility] Albumin 3.6 3.5 - 5.0 g/dL [facility] Alk phos 88 40 - 130 Units/L [facility] ALT 19 7 - 55 Units/L [facility] AST 30 10 - 50 Units/L [facility] Comment:Slightly Hemolyzed S pecimen Blood 07/04/2024 7:27 AM CDT 07/04/2024 7:42 AM CDT us Cammie Murillo MD LAB BLOOD ORDERABLES Final Result [facility] [address] Department [place] [address] * ECG 12 lead (07/04/2024 7:06 AM CDT) 07/04/2024 7:06 AM CDT Narrative [facility] - 07/04/2024 6:31 PM CDT Vent Rate: 87 bpm RR Interval: 686 msec ID Interval: 190 msec QRS Duration: 96 msec QT Interval: 358 msec QTC Interval: 402 msec P-R-T [place]: 84 - 83 - 75 degrees IMPRESSION: SINUS RHYTHM NORMAL ECG Electronically Signed By: Marin Guevara [facility] Card us Cammie Murillo MD ECG ORDERABLES Final Resu lt [facility] * GI - RESULT (06/27/2024) Anatomical Region Laterality Modality Other us Guru Lynch MD Final Result * CT Abdomen Pelvis W Contrast (06/09/2024 7:58 PM CDT) Anatomical Region Laterality Modality Body N/A Computed Tomogra phy 06/09/2024 7:50 PM CDT Impressions 06/10/2024 9:[address] findings to explain patient's abdominal pain. Electronically signed by: Niharika Delcid M.D. Narrative 06/10/2024 9:13 AM CDT EXAMINATION: Computed tomography of the abdomen and pelvis with intravenous contrast HISTORY: Abdominal pain TECHNIQUE: Transaxial computed tomographic images of the abdomen and pelvis were obtained with intravenous contrast according to the standard protocol after the uneventful administration of 70 mL Opti-Ray 350 intravenous contrast. COMPARISON: 01/12/2024 FINDINGS: Lung bases are clear. Heart is normal in size. The liver is normal in size with focal fat adjacent to the falciform ligament. There may be some subtle hepatic nodularity along the undersurface which can be suggestive of fibrosis. Gallbladder is normal. Portal vein is patent. The spleen, adrenal glands, and pancreas are normal. The kidneys symmetrically enhance. No hydronephrosis or nephrolithiasis. The bladder is normal. Stomach and duodenum are normal. Small bowel and colon are without evidence of obstruction or inflammation. Diverticulosis without evidence of diverticulitis. The appendix is normal. No pneumoperitoneum. No free fluid. There is atherosclerosis of the abdominal aorta which is normal in caliber. No lymphadenopathy. No suspicious osseous lesion. Trilevel degenerative disc disease. Procedure Note Niharika Delcid MD - 06/10/2024 EXAMINATION: Computed tomography of the abdomen and pelvis with intravenous contrast HISTORY: Abdominal pain TECHNIQUE: Transaxial computed tomographic images of the abdomen and pelvis were obtained with intravenous contrast according to the standard protocol after the uneventful administration of 70 mL Opti-Ray 350 intravenous contrast. COMPARISON: 01/12/2024 FINDINGS: Lung bases are clear. Heart is normal in size. The liver is normal in size with focal fat adjacent to the falciform ligament. There may be some subtle hepatic nodularity along the undersurface which can be suggestive of fibrosis. Gallbladder is normal. Portal vein is patent. The spleen, adrenal glands, and pancreas are normal. The kidneys symmetrically enhance. No hydronephrosis or nephrolithiasis. The bladder is normal. Stomach and duodenum are normal. Small bowel and colon are without evidence of obstruction or inflammation. Diverticulosis without evidence of diverticulitis. The appendix is normal. No pneumoperitoneum. No free fluid. There is atherosclerosis of the abdominal aorta which is normal in caliber. No lymphadenopathy. No suspicious osseous lesion. Trilevel degenerative disc disease. IMPRESSION: No CT findings to explain patient's abdominal pain. Electronically signed by: Niharika Delcid M.D. Isiah Russell MD IMG CT PROCEDURES Telma l Result * eGFR (06/09/2024 5:28 PM CDT) eGFR >90 >=60 mL/min/1. 73 m2 Comment: Interpretive Data Reference Interval Normal >/= 90 mL/min/1.73m2 Mildly decreased* 60 - 89 mL/min/1.73m2 Mildly to moderately decreased 45 - 59 mL/min/1.73m2 Moderately to severely decreased 30 - 44 mL/min/1.73m2 Severely decreased 15 - 29 mL/min/1.73m2 Kidney Failure < 15 mL/min/1.73m2 *Relative to young adult level Estimated glomerular filtration rate is determined by the 2020 CKD-EPI equation recommended by the National Kidney Foundation (A Unifying Approach to GFR Estimation: Recommendations of the NKF-ASK Task Force on Reassessing the Inclusion of Race in Diagnosing Kidney Disease, JASN 202). The CKD-EPI equation should not be used for patients with unstable renal function and has not been validated in children and those over 70. Current interpretive data was last reviewed 2021. Blood 06/09/2024 5:28 PM CDT 06/09/2024 6:06 PM CDT Get Hartmann MD LAB BLOOD ORDERABLES Final R esult [facility] [address] [place] [address] * (ABNORMAL) Differential, auto (06/09/2024 5:28 PM CDT) Neutrophil abs 3.30 1.50 - 6.50 K/cumm Imm gran abs 0.01 0.00 - 0.10 K/cumm [facility] Lymphocyte abs 1.62 0.80 - 3.30 K/cumm [facility] Monocyte abs 0.82(H) 0.20 - 0.80 K/cumm [facility] Eosinophil abs 0.06 0.00 - 0.50 K/cumm [facility] Basophil abs 0.03 0.00 - 0.10 K/cumm [facility] Neutrophil pct 56.6 % [facility] Comment: Interpretive Data Percent cell count reference ranges are not reported, since discordance with absolute values may lead to misinterpretation of CBC data. Current Interpretive Data was last revised on 2017. Imm gran pct 0.2 % [facility] Comment: Interpretive Data Percent cell count reference ranges are not reported, since discordance with absolute values may lead to misinterpretation of CBC data. Current Interpretive Data was last revised on 2017. Lymphocyte pct 27.7 % [facility] Comment: Interpretive Data Percent cell count reference ranges are not reported, since discordance with absolute values may lead to misinterpretation of CBC data. Current Interpretive Data was last revised on 2017. Monocyte pct 14.0 % [facility] Comment: Interpretive Data Percent cell count reference ranges are not reported, since discordance with absolute values may lead to misinterpretation of CBC data. Current Interpretive Data was last revised on 2017. Eosinophil pct 1.0 % [facility] Comment: Interpretive Data Percent cell count reference ranges are not reported, since discordance with absolute values may lead to misinterpretation of CBC data. Current Interpretive Data was last revised on 2017. Basophil pct 0.5 % [facility] Comment: Interpretive Data Percent cell count reference ranges are not reported, since discordance with absolute values may lead to misinterpretation of CBC data. Current Interpretive Data was last revised on 2017. Blood 06/09/2024 5:28 PM CDT 06/09/2024 6:06 PM CDT us Get Hartmann MD LAB BLOOD ORDERABLES Final R esult [facility] [address] [place] [address] * (ABNORMAL) Urinalysis reflex to microscopic and culture Urine (06/09/2024 5:28 PM CDT) Color, ur Straw Yellow Clarity, ur Clear Clear [facility] Specific gravity, ur 1.002(L) 1.003 - 1.030 [facility] pH, urine 6.5 [facility] Comment: Interpretive Data U rine pH is affected by diet, medications, systemic acid-base disturbances, and renal tubular function. pH may affect urinary stone formation. For example, urine pH below 6.0 may help reduce the tendency for calcium phosphate stones and pH greater than 6.0 may reduce the tendency for uric acid stone formation. Source: [facility] [employer] Current Interpretive Data was last revised on 2017 Protein, ur ql Negative Negative [facility] Glucose, ur ql Negative Negative [facility] Ketones, ur Negative Negative [facility] Bilirubin, ur Negative Negative [facility] Blood, ur Negative Negative [facility] Urobilinogen, ur <2.0 <2.0 mg/dL [facility] Nitrite, ur Negative Negative [facility] Leukocyte esterase, ur Negative Negative [facility] UA reflex comment Reflex conditions for microscopic UA and culture not met. [facility] Urine 06/09/2024 5:28 PM CDT 06/09/2024 5:28 PM CDT Isiah Russell MD LAB MICROBIOLOGY - GEN ERAL ORDERABLES Final Result Performing Organization Address [facility]/ZIP Co de Phone Number [facility] [address] [place] [address] * (ABNORMAL) CBC with auto differential (06/09/2024 5:28 PM CDT) WBC 5.84 3.80 - 9.90 K/cumm Hgb 14.3 13.0 - 17.5 g/dL [facility] Hct 40.7 38.9 - 50.3 % [facility] Plt 151 150 - 400 K/cumm [facility] MPV 9.5 9.1 - 12.3 fL [facility] RBC 4.20(L) 4.30 - 5.80 M/cumm [facility] MCV 96.9(H) 81.3 - 96.4 fL [facility] MCH 34.0(H) 27.1 - 33.3 pg [facility] MCHC 35.1 32.3 - 35.7 g/dL [facility] RDW CV 11.6 11.1 - 14.9 % [facility] RDW SD 40.9 35.7 - 48.1 fL [facility] NRBC abs 0.00 0.00 - 0.01 K/cumm [facility] Blood Venous blood specimen / Unknown 06/09/2024 5:28 PM CDT 06/09/2024 6:06 PM CDT Isiah Russell MD LAB BLOOD ORDERABLES F inal Result Performing Organization Address City/[facility]/ZIP Co de Phone Number [facility] [address] Department [place] [address] * Lipase (06/09/2024 5:28 PM CDT) Lipase 35 10 - 99 Units/L Blood Venous blood specimen / Unknown 06/09/2024 5:28 PM CDT 06/09/2024 6:06 PM CDT Isiah Russell MD LAB BLOOD ORDERABLES F inal Result [facility] [address] [place] [address] * Comprehensive metabolic panel (06/09/2024 5:28 PM CDT) Pathologist [facility] Sodium 140 135 - 145 mmol/L Potassium, pl 3.8 3.3 - 4.9 mmol/L [facility] Chloride 102 97 - 110 mmol/L [facility] CO2 25 22 - 32 mmol/L [facility] Anion gap 13 2 - 15 mmol/L [facility] BUN 10 6 - 25 mg/dL [facility] Creatinine 0.86 0.80 - 1.30 mg/dL [facility] Glucose 73 70 - 199 mg/dL [facility] Comment: Interpretive Data Fasting glucose >/= 126 mg/dl is diagnostic for diabetes. Fasting is defined as no caloric intake for at least 8 hours. Fasting glucose between 100 mg/dl to 125 mg/dl is diagnostic of prediabetes. In a patient with classic symptoms of hyperglycemia or hyperglycemic crisis, a random glucose >/= 200 mg/dl is diagnostic for diabetes. In the absence of unequivocal hyperglycemia, results should be confirmed by repeat testing. The classification and Diagnosis of Diabetes Diabetes Care 2021; 46: S19-S40. Current interpretive data was last revised 2022. Calcium 9.6 8.5 - 10.3 mg/dL [facility] Bilirubin, total 0.6 0.1 - 1.2 mg/dL [facility] Protein, pl 7.3 6.5 - 8.5 g/dL [facility] Albumin 4.3 3.5 - 5.0 g/dL [facility] Alk phos 83 40 - 130 Units/L [facility] ALT 17 7 - 55 Units/L [facility] AST 26 10 - 50 Units/L [facility] Blood 06/09/2024 5:28 PM CDT 06/09/2024 6:06 PM CDT Isiah Russell MD LAB BLOOD ORDERABLES F inal Result [facility] [address] [place] [address] * ECG 12 lead (06/09/2024 5:20 PM CDT) 06/09/2024 5:20 PM CDT Narrative [facility] - 06/10/2024 3:38 PM CDT Vent Rate: 58 bpm RR Interval: 1023 msec ID Interval: 203 msec QRS Duration: 105 msec QT Interval: 437 msec QTC Interval: 434 msec P-R-T [place]: 74 - 74 - 75 degrees IMPRESSION: SINUS BRADYCARDIA NONSPECIFIC T-WAVE ABNORMALITY BORDERLINE ECG Electronically Signed By: Mian Ambrosio MD Isiah Russell MD ECG ORDERABLES Final Result Performing Organization Address [facility] de Phone Number [facility] [employer] [facility] * PSA screen (12/07/2023 9:14 AM CDT) PSA-Total 1.21 <=3.90 ng/mL Comment: Interpretive Data AGE SEX REFERENCE INTERVAL 0 minutes-150 years Female None 0 minutes-49 years Male None 50-59 years Male 0-3.90 60-69 years Male 0-5.40 70-79 years Male 0-6.20 80-150 years Male 0-6.20 The [employer] PSA Total assay procedure was used. Results from different manufacturers or methods may not be comparable. Serial testing should be performed using the same method. Current interpretive data last revised 21. Blood 12/07/2023 9:14 AM CDT 12/07/2023 2:02 PM CDT us Guru Lynch MD LAB BLOOD ORDERABLES Final Res ult Performing Organization Address [facility] Co de Phone Number [facility] [address] [place] [address] * Hepatitis panel, acute (07/11/2021 10:17 AM CDT) Hep A IgM Nonreactive Nonreactive [facility] Comment: Interpretive Data: If Hep A IgM Ab is reported as Equivocal, a new sample should be drawn in two weeks for testing. Current interpretive data was last revised on 19. Hep B core IgM Nonreactive Nonreactive [facility] Comment: Interpretive Data If HepB Core IgM Ab is reported as Equivocal, a new sample should be drawn in two weeks for testing. Current interpretive data was last revised on 19. Hep C Ab Nonreactive Nonreactive [facility] Comment: Interpretive Data Nonreactive: Antibodies to HCV not detected. Does NOT exclude the possibility of recent exposure to HCV. Equivocal: Equivocal for HCV antibodies. Supplemental molecular testing will be automatically performed to determine infection status in accordance with current CDC screening recommendations. Reactive: Positive for HCV antibodies. This may represent current or past HCV infection. Supplemental molecular testing will be automatically performed to determine current infection status in accordance with current CDC screening recommendations. Interpretive data was last revised on 2019. 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 Referring MD: Guru Lynch M.D. Medicines: Propofol per Anesthesia Complications: No immediate complications. Estimated Blood Loss: Estimated blood loss: none. Procedure: Pre-Anesthesia Assessment: - Prior to the procedure, a History and Physicalwas performed, and patient medications and allergieswere reviewed. The patient's tolerance of previous anesthesia was also reviewed. The risks andbenefits of the procedure and the sedation options and risks were discussed with the patient. All questions were answered, and informed consent was obtained. Prior Anticoagulants: The patient has taken no previous anticoagulant or antiplatelet agents. ASA Grade Assessment: II - A patient with mild systemicdisease. After reviewing the risks and benefits, the patient was deemed in satisfactory condition to undergo the procedure. - The risks and benefits of the procedure and the sedation options and risks were discussed with the patient. All questions were answered and informed consent was obtained. The benefits, risks and alternatives of theprocedure and sedation were discussed and informed consentwas obtained. All questions were answered. Please referto the signed informed consent document in the medical record. The scope was passed under direct vision.The Colonoscope was introduced through the anus and advanced to the the terminal ileum. The colonoscopy was performed without difficulty. The patient tolerated the procedure well. The quality of thebowel preparation was evaluated using the BBPS (BostonBowel Preparation Scale) with scores of: Right Colon = 2 (minor amount of residual staining, small fragmentsof stool and/or opaque liquid, but mucosa seen well), Transverse Colon = 2 (minor amount of residual staining, small fragments of stool and/or opaque liquid, but mucosa seen well) and Left Colon = 2 (minor amount of residual staining, small fragmentsof stool and/or opaque liquid, but mucosa seen well).The total BBPS score equals 6. The quality of the bowel preparation was good. The bowel preparation usedwas Miralax via split dose instruction. Bowel prep was administered using a split dose. Findings: Hemorrhoids were found on perianal exam. Multiple medium-mouthed diverticula were found in the sigmoid colonand transverse colon. Non-bleeding internal hemorrhoids were found during retroflexion. The hemorrhoids were Grade II (internal hemorrhoids that prolapse butreduce spontaneously). The terminal ileum appeared normal. Impression: - Hemorrhoids found on perianal exam. - Diverticulosis in the sigmoid colon and in the transverse colon. - Non-bleeding internal hemorrhoids. - The examined portion of the ileum was normal. - No polyps or lesions or inflammation seen Recommendation: - Patient has a contact number available for emergencies. The signs and symptoms of potential delayed complications were discussed with thepatient. Return to normal activities tomorrow. Written discharge instructions were provided to thepatient. - Resume previous diet. Start daily metamucil fiberto minimize diverticular irritation. - Continue present medications. - Repeat colonoscopy in 10 years for screening purposes. - Return to primary care physician as previously scheduled. Attending Participation: I personally performed the entire procedure. Electronically signed by Yuri Martin MD Yuri Martin M.D. 2020 1:32:04 PM Number of Addenda: 0 Note Initiated On: 2020 12:08 PM Scope In: Scope Out: Yuri Martin MD ENDOSCOPY PROCEDURES Final Resul t from Last 3 Months or Most Recently Relevant to Health Maintenance Insurance [facility] HMO/PPO Address: [place] [address] [facility] HMO/PPO Address: [address] [place] [address] [facility] H[facility]/PPO Address: [facility] [address] [id number] Advance Directives For more information, please contact: [phone] * Full Code (Latest Code Status on File) Date Activated Date Inactivated Comments 2020 12:04 PM 2020 9:09 PM Care Teams Client Account Representative Relationship Specialty Start Date End Date Guru Lynch MD [address] [facility] [address] [place] [address] PCP - General 03/11/16 Gerardo Champagne MD [address] [place] [address] Medical Oncologist/Senior Clinical Research Scientist Hematology and Oncology 06/27/21 Abhijit Hall MD [address] [place] [address] Millinery Salesperson Cardiology 12/28/23
--- OUTSIDE RECORDS SUMMARY | 2024-08-16 17:30 | XMS_ITS | Referral Summary ---
Author Organization [facility] Address [address] [place] [address] Care Team Providers Care Child And Youth Program Assistant Name Role Phone Guru Lynch MD Primary Care Provider [phone] Gerardo Champagne MD Unavailable Abhijit Hall MD Unavailable [phone] Encounters Date Type Department Care Team Description 08/09/2024 1:45 PM CDT Office Visit [facility] [address] [place] [phone] Gerardo Champagne MD Macrocytic anemia (Primary Dx); Thrombocytopenia, secondary; MGUS (monoclonal gammopathy of unknown significance) 08/02/2024 2:15 PM CDT Lab [facility] Lab [address] [place] [phone] Macrocytic anemia; Thrombocytopenia, secondary; MGUS (monoclonal gammopathy of unknown significance) 07/24/2024 12:30 PM CDT Office Visit [facility] Card[facility] [address] [place] [address] [address] [place] [address] Abhijit Hall MD Coronary artery disease involving [place] coronary artery of [place] heart without angina pectoris (Primary Dx); Mixed hyperlipidemia; Tingling in extremities; Bradycardia 07/04/2024 7:01 AM CDT - 07/04/2024 11:50 AM CDT Emergency [facility] Emergency Department [address] [place] [address] Cammie Murillo MD Dehydration (Primary Dx); Dizziness Discharge Disposition: Discharge to home or self care 06/27/2024 Orders Only [facility] [address] [place] [address] Guru Lynch MD 06/09/2024 5:49 PM CDT - 06/09/2024 9:23 PM CDT Emergency [facility] Emergency Department [address] [place] [address] Isiah Russell MD Abdominal pain (Primary Dx) Discharge Disposition: Discharge to home or self care from Last 3 Months Allergies No known active allergies Medications ALPRAZolam [...] 1 tablet (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 Dr. Navarrete consulted. Patient to use heat followed by ice 15 minutes of each twice a day to his neck along with diclofenac cream [id number] as directed. Rectal bleeding 04/05/2020 Overview (04/05/2020): Added automatically from request for surgery [id number] Hemorrhoids, internal, thrombosed 02/21/2019 Assessment & Plan (05/21/2020 4:23 PM CDT): Patient to try taking Benefiber as directed to see if this helps soften stools to prevent bleeding from hemorrhoids. May also use preparation H [id number] for rectal irritation or bleeding hemorrhoids. Anorectal pain 02/21/2019 Coronary artery disease invo lving [place] coronary artery of [place] heart without angina pectoris 05/17/2017 Assessment & [...] 09/11/2016 Assessment & Plan (02/16/2023 5:04 PM UNDERLAY STITCHER): BMI is normal, today's instructions and counseling include lifestyle education regarding diet Assessment & Plan (04/11/2021 10:04 AM UNDERLAY STITCHER): BMI is normal, today's instructions and counseling include lifestyle education regarding diet Assessment & Plan (03/31/2019 10:19 AM UNDERLAY STITCHER): BMI is normal, Today's instructions and counseling include lifestyle education regarding diet and exercise. Assessment & Plan (03/25/2018 10:28 AM UNDERLAY STITCHER): BMI is elevated, Today's instructions and counseling include lifestyle education regarding diet and exercise as well as weight loss. Assessment & Plan (03/19/2017 4:59 PM UNDERLAY STITCHER): BMI is elevated, Today's instructions and counseling [...] Hypothyroidism Assessment & Plan (02/18/2024 1:29 PM UNDERLAY STITCHER): Clinically and biochemically euthyroid Continue levothyroxine 100 mcg daily TSH annually with Dr. Lynch. He will return to endocrine clinic as needed. Assessment & Plan (11/03/2023 3:44 PM CDT): Chronic, low TSH and high T4 on last blood work. Levothyroxine reduced to 100 mcg daily. Reassess levels today. Assessment & Plan (02/12/2023 2:27 PM UNDERLAY STITCHER): Uncontrolled, labs in February 2023 showed suppressed [...] Hyperlipidemia Assessment & Plan (02/18/2024 1:29 PM UNDERLAY STITCHER): Lab Results Component Value Date LDLCALC 44 [...] 02/26/2012 Assessment & Plan (02/12/2023 2:28 PM UNDERLAY STITCHER): Lipids well controlled. LDL 60 Continue rosuvastatin Resolved Problems Problem Noted Date Diagnosed Date Resolved Date Thyroid activity decreased 05/14/2015 1 04/15/2022 Immunizations Immunization Administration Dates Next Due Influenza, Quadrivalent, Spl it, Preservative Free, Intradermal 03/11/2016 Influenza, Quadrivalent, Spl it, Preservative Free, Intramuscular 02/16/2023,04/10/2022,04/11/2021,04/05,03/25/2018,11/22/2015 Influenza, Trivalent, Cell Culture-based MDCK, Preservative Free, Antibiotic Free, Intramuscular 01/01/2019,03/21/2013 Influenza, Trivalent, Preser vative Free, Intramuscular 12/07/2023 Influenza, Unspecified 12/23/2018,04/03/2018, Moderna SARS-CoV-2 Monovalen t Vaccination (12+ YRS) 02/11/2021 Tdap 05/10/2023 Social History Tobacco Use Types Packs/Day Years [...] on file Legal Sex Male 1:38 AM UNDERLAY STITCHER Gender Identity Not on file Sexual Orientation [...] Priority Associated Diagnoses Date/Ti me ESOPHAGOGASTRODUODENOSCOPY Dysphagia Procedures Procedure Name Priority Date/Time Associated Diagnosis [...] anemia Thrombocytopenia, secondary COLONOSCOPY 2020 12:08 PM UNDERLAY STITCHER from Last 3 Months or Most Recently Relevant to Health Maintenance Results * Immunotyping, serum with interpretation (08/02/2024 2:28 PM CDT) Pathologist [facility] Immunosubtraction See Comment Comment:Immunotyping Interpr etation: IgG Lambda Paraprotein Blood 08/02/2024 2:28 PM CDT 08/02/2024 2:48 PM CDT Narrative [facility] - 08/03/2024 12:23 PM CDT Reflex Immunotyping, Ser us Gerardo Champagne MD LAB BLOOD ORDERABLES Fin al Result [facility] [address] Department [place] [address] * Immunoglobulin profile (08/02/2024 2:28 PM CDT) Pathologist [facility] Immunoglobulin G 763 700 - 1,600 mg/dL Immunoglobulin A 149 70 - 400 mg/dL [facility] Immunoglobulin M 56 40 - 230 mg/dL [facility] Blood 08/02/2024 2:28 PM CDT 08/02/2024 2:48 PM CDT Gerardo Champagne MD LAB BLOOD ORDERABLES Fin al Result Performing Organization Address [facility] Co de Phone Number [facility] [address] [place] [address] * eGFR (08/02/2024 2:28 PM CDT) Pathologist [facility] eGFR >90 >=60 mL/min/1. 73 m2 Comment: [...] ORDERABLES Fin al Result Performing Organization Address [facility]/ZIP Co de Phone Number [facility] [address] Department [place] [address] * Differential, auto (08/02/2024 2:28 PM CDT) Neutrophil abs 1.75 1.50 - 6.50 K/cumm Imm gran abs 0.01 0.00 - 0.10 K/cumm [facility] Lymphocyte abs 0.89 0.80 - 3.30 K/cumm [facility] Monocyte abs 0.33 0.20 - 0.80 K/cumm [facility] Eosinophil abs 0.07 0.00 - 0.50 K/cumm [facility] Basophil abs 0.03 0.00 - 0.10 K/cumm [facility] Neutrophil pct 56.8 % [facility] Comment: Interpretive Data Percent cell count reference ranges are not reported, since discordance with absolute values may lead to misinterpretation of CBC data. Current Interpretive Data was last revised on 2017. Imm gran pct 0.3 % [facility] Comment: Interpretive Data Percent cell count reference ranges are not reported, since discordance with absolute values may lead to misinterpretation of CBC data. Current Interpretive Data was last revised on 2017. Lymphocyte pct 28.9 % [facility] Comment: Interpretive Data Percent cell count reference ranges are not reported, since discordance with absolute values may lead to misinterpretation of CBC data. Current Interpretive Data was last revised on 2017. Monocyte pct 10.7 % [facility] Comment: Interpretive Data Percent cell count reference ranges are not reported, since discordance with absolute values may lead to misinterpretation of CBC data. Current Interpretive Data was last revised on 2017. Eosinophil pct 2.3 % [facility] Comment: Interpretive Data Percent cell count reference ranges are not reported, since discordance with absolute values may lead to misinterpretation of CBC data. Current Interpretive Data was last revised on 2017. Basophil pct 1.0 % [facility] Comment: Interpretive Data Percent cell count reference ranges are not reported, since discordance with absolute values may lead to misinterpretation of CBC data. Current Interpretive Data was last revised on 2017. Blood 08/02/2024 2:28 PM CDT 08/02/2024 2:28 PM CDT us Gerardo Champagne MD LAB BLOOD ORDERABLES Fin al Result Performing Organization Address City/[facility]/ZIP Co de Phone Number [facility] [address] Department [place] [address] * Immunoglobulin free light chains (08/02/2024 2:28 PM CDT) [place]/Lambda ratio [facility] 0.98 0.26 - 1.65 Comment: Interpretive Data The Binding Site FreeLite assay procedure was used. Results from different manufacturers or methods may not be comparable. Serial testing should be performed using the same methods and instrumentation. Current Interpretive Data was last revised on 2023. Testing performed by: [facility], [address] [place] [address]., [id number] [place] free light chain BJ 1.23 0.33 - 1.94 mg/dL [facility] Comment: Interpretive Data The Binding Site FreeLite assay procedure was used. Results from different manufacturers or methods may not be comparable. Serial testing should be performed using the same methods and instrumentation. Current Interpretive Data was last revised on 2023. Testing performed by: [facility], [address] [place]., [address] Lambda free light chain BJ 1.25 0.57 - 2.63 mg/dL [facility] Comment: Interpretive Data The Binding Site FreeLite assay procedure was used. Results from different manufacturers or methods may not be comparable. Serial testing should be performed using the same methods and instrumentation. Current Interpretive Data was last revised on 2023. Testing performed by: [facility], [address] [place]., [address] Blood 08/02/2024 2:28 PM CDT 08/02/2024 6:54 PM CDT us Gerardo Champagne MD LAB BLOOD ORDERABLES Fin al Result Performing Organization Address City/[facility]/ZIP Co de Phone Number [facility] [address] Department [place] [address] * Iron profile w/ IBC (08/02/2024 2:28 PM CDT) [facility] Iron 80 50 - 150 mcg/dL TIBC 276 250 - 400 mcg/dL [facility] Transferrin saturation 29 20 - 50 % [facility] Blood 08/02/2024 2:28 PM CDT 08/02/2024 2:48 PM CDT us Gerardo Champagne MD LAB BLOOD ORDERABLES Fin al Result [facility] [address] Department [place] [address] * (ABNORMAL) CBC with auto differential (08/02/2024 2:28 PM CDT) [facility] WBC 3.04(L) 3.80 - 9.90 K/cumm Hgb 11.7(L) 13.0 - 17.5 g/dL [facility] Hct 33.4(L) 38.9 - 50.3 % [facility] Plt 111(L) 150 - 400 K/cumm [facility] MPV 8.6(L) 9.1 - 12.[address] [facility] RBC 3.53(L) 4.30 - 5.80 M/cumm [facility] MCV 94.6 81.3 - 96.[address] [facility] MCH 33.1 27.1 - 33.[address] [facility] MCHC 35.0 32.3 - 35.7 g/dL [facility] RDW CV 11.9 11.1 - 14.9 % [facility] RDW SD 40.9 35.7 - 48.[address] [facility] NRBC abs 0.00 0.00 - 0.01 K/cumm [facility] ANC Prelim 1.75 1.50 - 6.50 K/cumm [facility] Comment: Interpretive Data The rapid ANC is a preliminary automated count and may vary from the final ANC (Neut Abs) reported in the WBC differential that follows. Current interpretive data was last revised 2024. Blood 08/02/2024 2:28 PM CDT 08/02/2024 2:28 PM CDT Gerardo Champagne MD LAB BLOOD ORDERABLES Fin al Result Performing Organization Address City/[facility]/ZIP Co de Phone Number [facility] [address] [place] [address] * (ABNORMAL) Protein electrophoresis with reflex, serum with interpretation (08/02/2024 2:28 PM CDT) [facility] Protein, sr 5.7(L) 6.2 - 8.2 g/dL Albumin 3.5 3.2 - 5.0 g/dL [facility] Alpha-1 globulin 0.3 0.2 - 0.4 g/dL [facility] Alpha-2 globulin 0.6 0.5 - 1.0 g/dL [facility] Beta-1 globulin 0.4 0.3 - 0.6 g/dL [facility] Beta-2 globulin 0.3 0.2 - 0.6 g/dL [facility] Gamma globulin 0.6 0.5 - 1.7 g/dL [facility] Rstr Pk Gamma 0.2(H) 0.0 - 0.0 g/dL [facility] SPEP interp See Comment [facility] Comment:SPEP INTERPRETATION: Abnormal restricted peak in gamma region. History of monoclonal protein. Immunotyping See Immunotyping Results [facility] Blood 08/02/2024 2:28 PM CDT 08/02/2024 2:48 PM CDT Gerardo Champagne MD LAB BLOOD ORDERABLES Fin al Result [facility] [address] [employer] [place], [place] [id number] * Folate (08/02/2024 2:28 PM CDT) Pathologist [facility] Folic acid 8.3 >=5.0 ng/mL Blood 08/02/2024 2:28 PM CDT 08/02/2024 2:48 PM CDT Gerardo Champagne MD LAB BLOOD ORDERABLES Fin al Result Performing Organization Address City/[facility]/ZIP Co de Phone Number [facility] [address] [facility] [place] [address] * Ferritin (08/02/2024 2:28 PM CDT) Pathologist [facility] Ferritin 300 30 - 400 ng/mL Blood 08/02/2024 2:28 PM CDT 08/02/2024 2:48 PM CDT Gerardo Champagne MD LAB BLOOD ORDERABLES Fin al Result Performing Organization Address [facility] Co de Phone Number [facility] [address] [facility] [place] [address] * Vitamin B12 (08/02/2024 2:28 PM CDT) [facility] Vitamin B12 608 230 - 1,250 pg/mL Blood 08/02/2024 2:28 PM CDT 08/02/2024 2:48 PM CDT Gerardo Champagne MD LAB BLOOD ORDERABLES Fin al Result Performing Organization Address [facility] Co de Phone Number [facility] [address] [facility] [place] [address] * Renal function panel (08/02/2024 2:28 PM CDT) [facility] Sodium 141 135 - 145 mmol/L Potassium, pl 4.2 3.3 - 4.9 mmol/L [facility] Chloride 104 97 - 110 mmol/L [facility] CO2 26 22 - 32 mmol/L [facility] Anion gap 11 2 - 15 mmol/L [facility] BUN 12 6 - 25 mg/dL [facility] Creatinine 0.88 0.80 - 1.30 mg/dL [facility] Glucose 100 70 - 199 mg/dL [facility] Comment: Interpretive Data Fasting glucose >/= [...] 2022. Calcium 9.2 8.5 - 10.3 mg/dL [facility] Phosphorus, pl 3.2 2.3 - 4.5 mg/dL [facility] Albumin 4.0 3.5 - 5.0 g/dL [facility] Blood 08/02/2024 2:28 PM CDT 08/02/2024 2:48 PM CDT us Gerardo Champagne MD LAB BLOOD ORDERABLES [facility] al Result [facility] [address] Department [place] [address] * XR Chest Pa Lateral 2 Vw [...] ur Yellow Yellow Clarity, ur Clear Clear [facility] Specific gravity, ur 1.017 1.003 - 1.030 [facility] pH, urine 7.0 [facility] Comment: Interpretive Data U rine pH is affected by diet, medications, systemic acid-base disturbances, and renal tubular function. pH may affect urinary stone formation. For example, urine pH below 6.0 may help reduce the tendency for calcium phosphate stones and pH greater than 6.0 may reduce the tendency for uric acid stone formation. Source: [facility] [place] Current Interpretive Data was last revised on 2017 Protein, ur ql Negative Negative [facility] Glucose, ur ql Negative Negative [facility] Ketones, ur Negative Negative [facility] Bilirubin, ur Negative Negative [facility] Blood, ur Negative Negative [facility] Urobilinogen, ur <2.0 <2.0 mg/dL [facility] Nitrite, ur Negative Negative [facility] Leukocyte esterase, ur Negative Negative [facility] UA reflex comment Reflex conditions for microscopic UA and culture not met. [facility] Urine 07/04/2024 10:1 9 AM CDT 07/04/2024 10:24 AM CDT us Cammie Murillo MD LAB MICROBIOLOGY - GENERAL ORDERABLES Final Result [facility] [address] Department [place] [address] * (ABNORMAL) Drugs of Abuse Screen, Urine [...] 2022. Barbiturates, ur Not Detected CutOff 200ng/mL [facility] Comment: Interpretive Data - Barbiturates: Samples containing greater than 200 ng/mL secobarbital or other cross-reacting barbiturate compounds are reported as positive. False positive and false negative results are possible. Confirmatory testing required for definitive results. Current Interpretive Data was last reviewed 2022. Benzodiazepines, ur Screen Positive, presumptive (A) CutOff 100ng/mL [facility] Comment: Interpretive Data - Benzodiazepines: Samples containing greater than 100 ng/mL nordiazepam or other cross-reacting compounds are reported as positive. False positive and false negative results are possible. Confirmatory testing required for definitive results. Current Interpretive Data was last reviewed 2022. Cannabinoids, ur Not Detected CutOff 50 ng/mL [facility] Comment: Interpretive Data - Cannabinoids: Samples containing greater than 50 ng/mL delta-9 THC -COOH or other cross- reacting compounds are reported as positive. False positive and false negative results are possible. Confirmatory testing required for definitive results. Current Interpretive Data was last reviewed 2022. Cocaine, ur Not Detected CutOff 150ng/mL [facility] Comment: Interpretive Data - Cocaine: Samples containing greater than 150 ng/mL benzoylecgonine or other cross- reacting compounds are reported as positive. False positive and false negative results are possible. Confirmatory testing required for definitive results. Current Interpretive Data was last reviewed 2022. Fentanyl, Ur Not Detected CutOff 5 ng/mL [facility] Comment: Interpretive Data - Fentanyl: Samples containing greater than 5 ng/mL norfentanyl, fentanyl, or other cross-reacting fentanyl compounds are reported as positive. False positive and false negative results are possible. Confirmatory testing required for definitive results. Current Interpretive Data was last reviewed 2023. Methadone, ur Not Detected CutOff 300ng/mL [facility] Comment: Interpretive Data - Methadone: Samples containing greater than 300 ng/mL d,l-methadone or other cross-reacting compounds are reported as positive. False positive and false negative results are possible. Confirmatory testing required for definitive results. Current Interpretive Data was last reviewed 2022. Opiates, ur Not Detected CutOff 300ng/mL [facility] Comment: Interpretive Data - Opiates: Samples containing greater than 300 ng/mL morphine or other cross-reacting compounds are reported as positive. False positive and false negative results are possible. Confirmatory testing required for definitive results. Current Interpretive Data was last reviewed 2022. Oxycodone, ur Not Detected CutOff 100ng/mL [facility] Comment: Interpretive Data - Oxycodone: Samples containing greater than 100 ng/mL oxycodone or other cross-reacting compounds are reported as positive. False positive and false negative results are possible. Confirmatory testing required for definitive results. Current Interpretive Data was last reviewed 2022. Phencyclidine, ur Not Detected CutOff 25 ng/mL [facility] Comment: Interpretive Data - Phencyclidine: Samples containing greater than 25 ng/mL phencyclidine or other cross-reacting compounds are reported as positive. False positive and false negative results are possible. Confirmatory testing required for definitive results. Current Interpretive Data was last reviewed 2022. Urine Creatinine 105 mg/dL [facility] Comment: Interpretive Data Urine Creatinine: < 10 mg/dL is extremely dilute = or > 10 but < 20 mg/dL is dilute = or > 20 mg/dL is normal Current Interpretive Data was last revised on 2017. Urine 07/04/2024 10:1 9 AM CDT 07/04/2024 7:[address] [facility] - 07/04/2024 7:50 PM CDT Drug of Abuse screening is performed by immunoassay for medical purposes only. This is not to be used for Pain Management purposes. us Cammie Murillo MD LAB URINE ORDERABLES Final Result [facility] [address] Department [place] [address] * CT Head WO Contrast (07/04/2024 9:38 [...] and agrees with it. Electronically signed by: hSahbaz Eckert M.D. Cammie Murillo MD [facility] CT PROCEDURES Final Re sult * Troponin T high-sensitivity 2-hour (07/04/2024 9:23 AM CDT) Trop T hs 8 <=22 ng/L Comment: Interpretive Data For further hscTnT resources including the diagnostic algorithm and an aid in interpretation, copy and paste this link: https://nrl.[employer].org/show/hsTrop Current Interpretive Data last revised 2020. Trop T hs delta 1 ng/L [facility] Trop T hs interp Insignificant [facility] Blood 07/04/2024 9:23 AM CDT 07/04/2024 9:30 AM CDT Cammie Murillo MD LAB BLOOD ORDERABLES Final Result Performing Organization Address City/[facility]/ZIP Co de Phone Number [facility] [address] [place] [address] * Troponin T high-sensitivity series (baseline, 2hr, 4hr, 6hr) (07/04/2024 7:27 AM CDT) Pathologist [facility] Trop T hs 7 <=22 ng/L Comment: Interpretive Data For further hscTnT resources including the diagnostic algorithm and an aid in interpretation, copy and paste this link: https://nrl.[employer].org/show/hsTrop Current Interpretive Data last revised 2020. Blood 07/04/2024 7:27 AM CDT 07/04/2024 7:42 AM CDT Cammie Murillo MD LAB BLOOD ORDERABLES Final Result [facility] [address] [place] [address] * eGFR (07/04/2024 7:27 AM CDT) Pathologist [facility] eGFR >90 >=60 mL/min/1. 73 m2 Comment: [...] Murillo MD LAB BLOOD ORDERABLES Final Result [facility] [address] Department [place] [address] * Differential, auto (07/04/2024 7:27 AM CDT) Neutrophil abs 2.59 1.50 - 6.50 K/cumm Imm gran abs 0.01 0.00 - 0.10 K/cumm [facility] Lymphocyte abs 1.60 0.80 - 3.30 K/cumm [facility] Monocyte abs 0.71 0.20 - 0.80 K/cumm [facility] Eosinophil abs 0.11 0.00 - 0.50 K/cumm [facility] Basophil abs 0.04 0.00 - 0.10 K/cumm [facility] Neutrophil pct 51.2 % [facility] Comment: Interpretive Data Percent cell count reference ranges are not reported, since discordance with absolute values may lead to misinterpretation of CBC data. Current Interpretive Data was last revised on 2017. Imm gran pct 0.2 % [facility] Comment: Interpretive Data Percent cell count reference ranges are not reported, since discordance with absolute values may lead to misinterpretation of CBC data. Current Interpretive Data was last revised on 2017. Lymphocyte pct 31.6 % [facility] Comment: Interpretive Data Percent cell count reference ranges are not reported, since discordance with absolute values may lead to misinterpretation of CBC data. Current Interpretive Data was last revised on 2017. Monocyte pct 14.0 % [facility] Comment: Interpretive Data Percent cell count reference ranges are not reported, since discordance with absolute values may lead to misinterpretation of CBC data. Current Interpretive Data was last revised on 2017. Eosinophil pct 2.2 % [facility] Comment: Interpretive Data Percent cell count reference ranges are not reported, since discordance with absolute values may lead to misinterpretation of CBC data. Current Interpretive Data was last revised on 2017. Basophil pct 0.8 % [facility] Comment: Interpretive Data Percent cell count reference ranges are not reported, since discordance with absolute values may lead to misinterpretation of CBC data. Current Interpretive Data was last revised on 2017. Blood 07/04/2024 7:27 AM CDT 07/04/2024 7:41 AM CDT Cammie Murillo MD LAB BLOOD ORDERABLES Final Result [facility] [address] [facility] [place] [address] * (ABNORMAL) Thyroid Function [place] (07/04/2024 7:27 AM CDT) TSH 0.26(L) 0.30 - 4.20 mcIUnit/mL Blood 07/04/2024 7:27 AM CDT 07/04/2024 7:42 AM CDT Cammie Murillo MD LAB BLOOD ORDERABLES Final Result Performing Organization Address City/[facility]/ZIP Co de Phone Number [facility] [address] [place] [address] * (ABNORMAL) CBC with auto differential (07/04/2024 7:27 AM CDT) [facility] WBC 5.06 3.80 - 9.90 K/cumm Hgb 13.6 13.0 - 17.5 g/dL [facility] Hct 38.8(L) 38.9 - 50.3 % [facility] Plt 158 150 - 400 K/cumm [facility] MPV 9.5 9.1 - 12.[address] [facility] RBC 4.10(L) 4.30 - 5.80 M/cumm [facility] MCV 94.6 81.3 - 96.[address] [facility] MCH 33.2 27.1 - 33.[address] [facility] MCHC 35.1 32.3 - 35.7 g/dL [facility] RDW CV 11.4 11.1 - 14.9 % [facility] RDW SD 39.4 35.7 - 48.[address] [facility] NRBC abs 0.00 0.00 - 0.01 K/cumm [facility] Blood 07/04/2024 7:27 AM CDT 07/04/2024 7:41 AM CDT us Cammie Murillo MD LAB BLOOD ORDERABLES Final Result Performing Organization Address [facility] Co de Phone Number [facility] [address] Department [place] [address] * (ABNORMAL) T4, free (07/04/2024 7:27 AM CDT) [facility] Free T4 1.75(H) 0.90 - 1.70 ng/dL Blood 07/04/2024 7:27 AM CDT 07/04/2024 7:[address] [facility] - 07/04/2024 8:37 AM CDT This test was reflexed from a TSH result. Cammie Murillo MD LAB BLOOD ORDERABLES Final Result Performing Organization Address City/[facility] Co de Phone Number [facility] [address] [facility] [address] * Lipase (07/04/2024 7:27 AM CDT) [facility] Lipase 39 10 - 99 Units/L Blood 07/04/2024 7:27 AM CDT 07/04/2024 7:42 AM CDT Cammie Murillo MD LAB BLOOD ORDERABLES Final Result Performing Organization Address [facility] de Phone Number [facility] [address] [facility] [address] * Ethanol (07/04/2024 7:27 AM CDT) [facility] Ethanol <10 <=10 mg/dL Comment: Interpretive Data Legal limit of intoxication > or = 80 mg/dL Levels > or = 400 mg/dL are potentially TOXIC. Current interpretive data was last revised on 2018. Blood 07/04/2024 7:27 AM CDT 07/04/2024 7:42 AM CDT Cammie Murillo MD LAB BLOOD ORDERABLES Final Result Performing Organization Address [facility] Co de Phone Number [facility] [address] [place] [address] * (ABNORMAL) Comprehensive metabolic panel (07/04/2024 7:27 AM CDT) [facility] Sodium 141 135 - 145 mmol/L Potassium, pl 3.9 3.3 - 4.9 mmol/L [facility] Chloride 106 97 - 110 mmol/L [facility] CO2 22 22 - 32 mmol/L [facility] Anion gap 13 2 - 15 mmol/L [facility] BUN 14 6 - 25 mg/dL [facility] Creatinine 0.73(L) 0.80 - 1.30 mg/dL [facility] Glucose 90 70 - 199 mg/dL [facility] Comment: Interpretive Data Fasting glucose >/= [...] classification and Diagnosis of Diabetes Diabetes Care 202; 46: S19-S40. Current interpretive data was last revised 2022. Calcium 8.9 8.5 - 10.3 mg/dL [facility] Bilirubin, total 0.6 0.1 - 1.2 mg/dL [facility] Protein, pl 6.2(L) 6.5 - 8.5 g/dL [facility] Albumin 3.6 3.5 - 5.0 g/dL [facility] Alk phos 88 40 - 130 Units/L [facility] ALT 19 7 - 55 Units/L [facility] AST 30 10 - 50 Units/L [facility] Comment:Slightly Hemolyzed S pecimen Blood 07/04/2024 7:27 AM CDT 07/04/2024 7:42 AM CDT us Cammie Murillo MD LAB BLOOD ORDERABLES Final Result [facility] [address] Department [place] [address] * ECG 12 lead (07/04/2024 7:06 AM CDT) 07/04/2024 7:06 AM CDT Narrative [facility] - 07/04/2024 6:31 PM CDT Vent Rate: 87 bpm RR Interval: 686 msec [place] Interval: 190 msec QRS Duration: 96 msec QT Interval: 358 msec QTC Interval: 402 msec P-R-T [place]: 84 - 83 - 75 degrees IMPRESSION: SINUS RHYTHM NORMAL ECG Electronically Signed By: Marin Guevara [facility] Card us Cammie Murillo MD ECG ORDERABLES Final Resu lt [facility] * GI - RESULT (06/27/2024) Anatomical Region Laterality Modality Other us Guru yLnch MD Final Result * CT Abdomen Pelvis [...] MD LAB BLOOD ORDERABLES Final R esult [facility] [address] [place] [address] * (ABNORMAL) Differential, auto (06/09/2024 5:28 PM CDT) Neutrophil abs 3.30 1.50 - 6.50 K/cumm Imm gran abs 0.01 0.00 - 0.10 K/cumm [facility] Lymphocyte abs 1.62 0.80 - 3.30 K/cumm [facility] Monocyte abs 0.82(H) 0.20 - 0.80 K/cumm [facility] Eosinophil abs 0.06 0.00 - 0.50 K/cumm [facility] Basophil abs 0.03 0.00 - 0.10 K/cumm [facility] Neutrophil pct 56.6 % [facility] Comment: Interpretive Data Percent cell count reference ranges are not reported, since discordance with absolute values may lead to misinterpretation of CBC data. Current Interpretive Data was last revised on 2017. Imm gran pct 0.2 % [facility] Comment: Interpretive Data Percent cell count reference ranges are not reported, since discordance with absolute values may lead to misinterpretation of CBC data. Current Interpretive Data was last revised on 2017. Lymphocyte pct 27.7 % [facility] Comment: Interpretive Data Percent cell count reference ranges are not reported, since discordance with absolute values may lead to misinterpretation of CBC data. Current Interpretive Data was last revised on 2017. Monocyte pct 14.0 % [facility] Comment: Interpretive Data Percent cell count reference ranges are not reported, since discordance with absolute values may lead to misinterpretation of CBC data. Current Interpretive Data was last revised on 2017. Eosinophil pct 1.0 % [facility] Comment: Interpretive Data Percent cell count reference ranges are not reported, since discordance with absolute values may lead to misinterpretation of CBC data. Current Interpretive Data was last revised on 2017. Basophil pct 0.5 % [facility] Comment: Interpretive Data Percent cell count reference ranges are not reported, since discordance with absolute values may lead to misinterpretation of CBC data. Current Interpretive Data was last revised on 2017. Blood 06/09/2024 5:28 PM CDT 06/09/2024 6:06 PM CDT Get Hartmann MD LAB BLOOD ORDERABLES Final R esult [facility] [address] [place] [address] * (ABNORMAL) Urinalysis reflex to microscopic and culture Urine (06/09/2024 5:28 PM CDT) Color, ur Straw Yellow Clarity, ur Clear Clear [facility] Specific gravity, ur 1.002(L) 1.003 - 1.030 [facility] pH, urine 6.5 [facility] Comment: Interpretive Data U rine pH is affected by diet, medications, systemic acid-base disturbances, and renal tubular function. pH may affect urinary stone formation. For example, urine pH below 6.0 may help reduce the tendency for calcium phosphate stones and pH greater than 6.0 may reduce the tendency for uric acid stone formation. Source: [facility] Current Interpretive Data was last revised on 2017 Protein, ur ql Negative Negative [facility] Glucose, ur ql Negative Negative [facility] Ketones, ur Negative Negative [facility] Bilirubin, ur Negative Negative [facility] Blood, ur Negative Negative [facility] Urobilinogen, ur <2.0 <2.0 mg/dL [facility] Nitrite, ur Negative Negative [facility] Leukocyte esterase, ur Negative Negative [facility] UA reflex comment Reflex conditions for microscopic UA and culture not met. [facility] Urine 06/09/2024 5:28 PM CDT 06/09/2024 5:28 PM CDT us Isiah Russell MD LAB MICROBIOLOGY - GEN ERAL ORDERABLES Final Result [facility] [address] [place] [address] * (ABNORMAL) CBC with auto differential (06/09/2024 5:28 PM CDT) Pathologist [facility] WBC 5.84 3.80 - 9.90 K/cumm Hgb 14.3 13.0 - 17.5 g/dL [facility] Hct 40.7 38.9 - 50.3 % [facility] Plt 151 150 - 400 K/cumm [facility] MPV 9.5 9.1 - 12.[address] [facility] RBC 4.20(L) 4.30 - 5.80 M/cumm [facility] MCV 96.9(H) 81.3 - 96.[address] [facility] MCH 34.0(H) 27.1 - 33.[address] [facility] MCHC 35.1 32.3 - 35.7 g/dL [facility] RDW CV 11.6 11.1 - 14.9 % [facility] RDW SD 40.9 35.7 - 48.[address] [facility] NRBC abs 0.00 0.00 - 0.01 K/cumm [facility] Blood Venous blood specimen / Unknown 06/09/2024 5:28 PM CDT 06/09/2024 6:06 PM CDT us Isiah Russell MD LAB BLOOD ORDERABLES F inal Result Performing Organization Address [facility]/ZIP Co de Phone Number [facility] [address] [place] [address] * Lipase (06/09/2024 5:28 PM CDT) Pathologist [facility] Lipase 35 10 - 99 Units/L Blood Venous blood specimen / Unknown 06/09/2024 5:28 PM CDT 06/09/2024 6:06 PM CDT Isiah Russell MD LAB BLOOD ORDERABLES F inal Result Performing Organization Address City/[facility] Co de Phone Number [facility] [address] Department [place] [address] * Comprehensive metabolic panel (06/09/2024 5:28 PM CDT) Sodium 140 135 - 145 mmol/L Potassium, pl 3.8 3.3 - 4.9 mmol/L [facility] Chloride 102 97 - 110 mmol/L [facility] CO2 25 22 - 32 mmol/L [facility] Anion gap 13 2 - 15 mmol/L [facility] BUN 10 6 - 25 mg/dL [facility] Creatinine 0.86 0.80 - 1.30 mg/dL [facility] Glucose 73 70 - 199 mg/dL [facility] Comment: Interpretive Data Fasting glucose >/= [...] classification and Diagnosis of Diabetes Diabetes Care 202; 46: S19-S40. Current interpretive data was last revised 2022. Calcium 9.6 8.5 - 10.3 mg/dL [facility] Bilirubin, total 0.6 0.1 - 1.2 mg/dL [facility] Protein, pl 7.3 6.5 - 8.5 g/dL [facility] Albumin 4.3 3.5 - 5.0 g/dL [facility] Alk phos 83 40 - 130 Units/L [facility] ALT 17 7 - 55 Units/L [facility] AST 26 10 - 50 Units/L [facility] Blood 06/09/2024 5:2 8 PM CDT 06/09/2024 6:06 PM CDT Isiah Russell MD LAB BLOOD ORDERABLES F inal Result Performing Organization Address [facility]/ZIP Co de Phone Number [facility] [address] [place] [address] * ECG 12 lead (06/09/2024 5:20 PM CDT) 06/09/2024 5:20 PM CDT Narrative [facility] - 06/10/2024 3:38 PM CDT Vent Rate: 58 bpm RR Interval: 1023 msec [place] Interval: 203 msec QRS Duration: 105 msec QT Interval: 437 msec QTC Interval: 434 msec P-R-T [place]: 74 - 74 - 75 degrees IMPRESSION: SINUS BRADYCARDIA NONSPECIFIC T-WAVE ABNORMALITY BORDERLINE ECG Electronically Signed By: Mian Ambrosio MD us Isiah Russell MD ECG ORDERABLES Final Result Performing Organization Address City/[facility] Co de Phone Number [facility] * PSA screen (12/07/2023 9:14 AM CDT) [...] MD LAB BLOOD ORDERABLES Final Res ult [facility] [address] Department [place] [address] * Hepatitis panel, acute (07/11/2021 10:17 AM CDT) Hep A IgM Nonreactive Nonreactive [facility] Comment: Interpretive Data: If Hep A IgM Ab is reported as Equivocal, a new sample should be drawn in two weeks for testing. Current interpretive data was last revised on 19. Hep B core IgM Nonreactive Nonreactive [facility] Comment: Interpretive Data If HepB Core IgM Ab is reported as Equivocal, a new sample should be drawn in two weeks for testing. Current interpretive data was last revised on 19. Hep C Ab Nonreactive Nonreactive [facility] Comment: Interpretive Data Nonreactive: Antibodies to [...] last revised on 2019. HepBsAg Nonreactive Nonreactive [facility] Blood 07/11/2021 10:1 7 AM CDT 07/11/2021 10:30 AM CDT us Gerardo Champagne MD LAB MICROBIOLOGY - GENER AL ORDERABLES Final Result 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) Anatomical Region Laterality Modality Other Narrative Procedure Note Yuri Martin MD - 2020 12:08 PM CST ENDOSCOPY LAB Patient Name: Al Day Procedure Date: 2020 12:08 PM Admit Type: Outpatient Room: [facility] Date of : 1965 Instrument Name: [id number] Gender: Male Note Status: Finalized Procedure: Colonoscopy [...] 2020 12:08 PM Scope In: Scope Out: us Yuri Martin MD ENDOSCOPY PROCEDURES Final Resul t from Last 3 Months or Most Recently Relevant to Health Maintenance Insurance [facility] PLUS [facility] PLUS Member Subscriber Plan / Payer (Ef fective 2022-Present) Name:Al Day Relation to Subscriber:Self Name:Al Day Payer ID:[id number] (NAIC) Type:[facility] H[facility]/PPO Address: [place] [phone] [facility] PLUS Advance Directives For more information, please contact: [phone] * Full Code (Latest Code Status on File) Date Activated Date Inactivated Comments 2020 12:04 PM 2020 9:09 PM Care Teams Child And Youth Program Assistant Relationship Specialty Start Date End Date Guru Lynch MD [address] [facility] [address] [place] [address] PCP - General 03/11/16 Gerardo Champagne MD [address] [place] [address] Medical Oncologist/Buyer Broker Hematology and Oncology 06/27/21 Abhijit Hall MD [address] [facility] [address] [place] [address] Sql Report Writer Cardiology 12/28/23
--- OUTSIDE RECORDS SUMMARY | 2024-08-16 17:30 | XMS_ITS | Encounter Summary ---
Author Organization [facility] Healthcare Address [address] [place] [address] Care Team Providers Care Nutritional Health Coach Name Role Phone Guru Lynch MD Primary Care Provider [phone] Gerardo Champagne MD Unavailable [phone] Abhijit Hall MD Unavailable [phone] Encounter Details Date Type Department Care Team (Late st Contact Info) Description 07/18/2021 Telephone [facility] - Interventional Radiology [address] [place] [address] Liz Johansen, KATHLEEN Social History Tobacco Use Types Packs/Day Years Used Date Smoking Tobacco: Former Smokeless Tobacco: Never Alcohol Use Standard Drinks/Week Comments Yes 0 (1 standard drink = 0.6 oz pur e alcohol) rarely. AUDIT-C Answer Date Recorded Q1: How often do you have a drink containing alc ohol? Never 05/21/2020 Average Number of Drinks Not on file 021 Q3: How often do you have si x or more drinks on one occasion? 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 Gender Identity Not on file Sexual Orientation Not on file documented as of this encounter Plan of Treatment Scheduled Procedures Name Priority Associated Diagnoses Date/Ti me ESOPHAGOGASTRODUODENOSCOPY Dysphagia documented as of this encounter Results * (ABNORMAL) CBC with auto differential (07/21/2021 9:01 AM CDT) WBC 3.4(L) 3.8 - 9.9 K/cumm [facility] Hgb 12.5(L) 13.0 - 17.5 g/dL [facility] Hct 35.3(L) 38.9 - 50.3 % [facility] Plt 137(L) 150 - 400 K/cumm [facility] MPV 8.7(L) 9.1 - 12.3 fL [facility] RBC 3.60(L) 4.30 - 5.80 M/cumm [facility] MCV 98.1(H) 81.3 - 96.4 fL [facility] MCH 34.7(H) 27.1 - 33.3 pg [facility] MCHC 35.4 32.3 - 35.7 g/dL [facility] RDW CV 12.2 11.1 - 14.9 % [facility] RDW SD 43.8 35.7 - 48.1 fL [facility] NRBC abs 0.00 0.00 - 0.01 K/cumm [facility] Blood 07/21/2021 9:01 AM CDT 07/21/2021 9:43 AM CDT us Gerardo Champagne MD LAB BLOOD ORDERABLES Fin al Result [facility] [address] [place] [address] documented in this encounter Visit Diagnoses Diagnosis Thrombocytopenia, unspecified- Primary documented in this encounter Care Teams Nutritional Health Coach Relationship Specialty Start Date End Date Guru Lynch MD [address] [address] PCP - General 03/11/16 Gerardo Champagne MD [address] [place] [address] Medical Oncologist/Deli Department Manager Hematology and Oncology 06/27/21 Abhijit Hall MD [address] [place] [address] Water Taxi Ferry Operator Cardiology 12/28/23 documented as of this encounter
--- OUTSIDE RECORDS SUMMARY | 2024-08-16 18:06 | XMS_ITS | Clinical Summary ---
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 Rectal bleeding 04/05/2020 Overview (04/05/2020): Added automatically from request for surgery [id number] Hemorrhoids, internal, thrombosed 02/21/2019 Assessment & Plan (05/21/2020 4:23 PM CDT): Patient to try taking Benefiber as directed to see if this helps soften stools to prevent bleeding from hemorrhoids. May also use preparation H [id number] for rectal irritation or bleeding hemorrhoids. Anorectal pain 02/21/2019 Coronary artery disease invo lving [place] coronary artery of [place] heart without angina pectoris 05/17/2017 Assessment & [...] 09/11/2016 Assessment & Plan (02/16/2023 5:04 PM BANK OPERATIONS OFFICER): BMI is normal, today's instructions and counseling include lifestyle education regarding diet Assessment & Plan (04/11/2021 10:04 AM BANK OPERATIONS OFFICER): BMI is normal, today's instructions and counseling include lifestyle education regarding diet Assessment & Plan (03/31/2019 10:19 AM BANK OPERATIONS OFFICER): BMI is normal, Today's instructions and counseling include lifestyle education regarding diet and exercise. Assessment & Plan (03/25/2018 10:28 AM BANK OPERATIONS OFFICER): BMI is elevated, Today's instructions and counseling include lifestyle education regarding diet and exercise as well as weight loss. Assessment & Plan (03/19/2017 4:59 PM BANK OPERATIONS OFFICER): BMI is elevated, Today's instructions and counseling [...] Hypothyroidism Assessment & Plan (02/18/2024 1:29 PM BANK OPERATIONS OFFICER): Clinically and biochemically euthyroid Continue levothyroxine 100 mcg daily TSH annually with Dr. Lynch. He will return to endocrine clinic as needed. Assessment & Plan (11/03/2023 3:44 PM CDT): Chronic, low TSH and high T4 on last blood work. Levothyroxine reduced to 100 mcg daily. Reassess levels today. Assessment & Plan (02/12/2023 2:27 PM BANK OPERATIONS OFFICER): Uncontrolled, labs in February 2023 showed suppressed [...] Hyperlipidemia Assessment & Plan (02/18/2024 1:29 PM BANK OPERATIONS OFFICER): Lab Results Component Value Date LDLCALC 44 [...] 02/26/2012 Assessment & Plan (02/12/2023 2:28 PM BANK OPERATIONS OFFICER): Lipids well controlled. LDL 60 Continue rosuvastatin Resolved Problems Problem Noted Date Diagnosed Date Resolved Date Thyroid activity decreased 05/14/2015 1 04/15/2022 Encounters Date Type Department Care Team Description 08/09/2024 1:45 PM CDT Office Visit [facility] [place] [address] Gerardo Champagne MD Macrocytic anemia (Primary Dx); Thrombocytopenia, secondary; MGUS (monoclonal gammopathy of unknown significance) 08/02/2024 2:15 PM CDT Lab [facility] [address] [place] [phone] Macrocytic anemia; Thrombocytopenia, secondary; MGUS (monoclonal gammopathy of unknown significance) 07/24/2024 12:30 PM CDT Office Visit [facility] [address] [place] [phone] Abhijit Hall MD Coronary artery disease involving [place] coronary artery of [place] heart without angina pectoris (Primary Dx); Mixed hyperlipidemia; Tingling in extremities; Bradycardia 07/04/2024 7:01 AM CDT - 07/04/2024 11:50 AM CDT Emergency [facility] Emergency Department [address] [place] [phone] Cammie Murillo MD Dehydration (Primary Dx); Dizziness Discharge Disposition: Discharge to home or self care 06/27/2024 Orders Only [facility] Information Management [address] [place] [id number] Guru Lynch MD 06/09/2024 5:49 PM CDT - 06/09/2024 9:23 PM CDT Emergency [facility] Emergency Department [address] [place] [phone] Isiah Russell MD Abdominal pain (Primary Dx) [...] on file Legal Sex Male 1:38 AM BANK OPERATIONS OFFICER Gender Identity Not on file Sexual Orientation [...] anemia Thrombocytopenia, secondary COLONOSCOPY 2020 12:08 PM BANK OPERATIONS OFFICER from Last 3 Months or Most Recently Relevant to Health Maintenance Results * Immunotyping, serum with interpretation (08/02/2024 2:28 PM CDT) Immunosubtraction See Comment Comment:Immunotyping Interpr etation: IgG Lambda Paraprotein Blood 08/02/2024 2:28 PM CDT 08/02/2024 2:48 PM CDT Narrative [facility] - 08/03/2024 12:23 PM CDT Reflex Immunotyping, Ser us Gerardo Champagne MD LAB BLOOD ORDERABLES Fin al Result [facility] [address] [facility] [place] [address] * Immunoglobulin profile (08/02/2024 2:28 PM CDT) Immunoglobulin G 763 700 - 1,600 mg/dL Immunoglobulin A 149 70 - 400 mg/dL [facility] Immunoglobulin M 56 40 - 230 mg/dL [facility] Blood 08/02/2024 2:28 PM CDT 08/02/2024 2:48 PM CDT Gerardo Champagne MD LAB BLOOD ORDERABLES Fin al Result Performing Organization Address [facility] Co de Phone Number [facility] [address] [place] [address] * eGFR (08/02/2024 2:28 PM CDT) Pathologist [facility] Emergency Department eGFR >90 >=60 mL/min/1. 73 m2 Comment: [...] MD LAB BLOOD ORDERABLES Fin al Result [facility] [address] [place] [address] * Differential, auto (08/02/2024 2:28 PM CDT) Neutrophil abs 1.75 1.50 - 6.50 K/cumm Imm gran abs 0.01 0.00 - 0.10 K/cumm [facility] Lymphocyte abs 0.89 0.80 - 3.30 K/cumm [facility] Monocyte abs 0.33 0.20 - 0.80 K/cumm [facility] Eosinophil abs 0.07 0.00 - 0.50 K/cumm [facility] Basophil abs 0.03 0.00 - 0.10 K/cumm [facility] Neutrophil pct 56.8 % [facility] Comment: Interpretive Data Percent cell count reference ranges are not reported, since discordance with absolute values may lead to misinterpretation of CBC data. Current Interpretive Data was last revised on 2017. Imm gran pct 0.3 % [facility] Comment: Interpretive Data Percent cell count reference ranges are not reported, since discordance with absolute values may lead to misinterpretation of CBC data. Current Interpretive Data was last revised on 2017. Lymphocyte pct 28.9 % [facility] Comment: Interpretive Data Percent cell count reference ranges are not reported, since discordance with absolute values may lead to misinterpretation of CBC data. Current Interpretive Data was last revised on 2017. Monocyte pct 10.7 % [facility] Comment: Interpretive Data Percent cell count reference ranges are not reported, since discordance with absolute values may lead to misinterpretation of CBC data. Current Interpretive Data was last revised on 2017. Eosinophil pct 2.3 % [facility] Comment: Interpretive Data Percent cell count reference ranges are not reported, since discordance with absolute values may lead to misinterpretation of CBC data. Current Interpretive Data was last revised on 2017. Basophil pct 1.0 % [facility] Comment: Interpretive Data Percent cell count reference ranges are not reported, since discordance with absolute values may lead to misinterpretation of CBC data. Current Interpretive Data was last revised on 2017. Blood 08/02/2024 2:28 PM CDT 08/02/2024 2:28 PM CDT us Gerardo Champagne MD LAB BLOOD ORDERABLES Fin al Result [facility] [address] [place] [address] * Immunoglobulin free light chains (08/02/2024 2:28 PM CDT) [place]/Lambda ratio BJ 0.98 0.26 - 1.65 Comment: Interpretive Data The Binding Site FreeLite assay procedure was used. Results from different manufacturers or methods may not be comparable. Serial testing should be performed using the same methods and instrumentation. Current Interpretive Data was last revised on 2023. Testing performed by: [facility], [address] [place]., [address] [place] free light chain BJH 1.23 0.33 - 1.94 mg/dL [facility] Comment: Interpretive Data The Binding Site FreeLite assay procedure was used. Results from different manufacturers or methods may not be comparable. Serial testing should be performed using the same methods and instrumentation. Current Interpretive Data was last revised on 2023. Testing performed by: [facility], [address] [place]., [address] Lambda free light chain BJH 1.25 0.57 - 2.63 mg/dL [facility] Comment: Interpretive Data The Binding Site FreeLite assay procedure was used. Results from different manufacturers or methods may not be comparable. Serial testing should be performed using the same methods and instrumentation. Current Interpretive Data was last revised on 2023. Testing performed by: [facility], [address] [place]., [address] Blood 08/02/2024 2:28 PM CDT 08/02/2024 6:54 PM CDT Gerardo Champagne MD LAB BLOOD ORDERABLES Fin al Result Performing Organization Address [facility] Co de Phone Number [facility] [address] [facility] [place] [address] * Iron profile w/ IBC (08/02/2024 2:28 PM CDT) [facility] Iron 80 50 - 150 mcg/dL TIBC 276 250 - 400 mcg/dL [facility] Transferrin saturation 29 20 - 50 % [facility] Blood 08/02/2024 2:28 PM CDT 08/02/2024 2:48 PM CDT Gerardo Champagne MD LAB BLOOD ORDERABLES Fin al Result Performing Organization Address [facility] de Phone Number [facility] [address] [place] [address] * (ABNORMAL) CBC with auto differential (08/02/2024 2:28 PM CDT) [facility] WBC 3.04(L) 3.80 - 9.90 K/cumm Hgb 11.7(L) 13.0 - 17.5 g/dL [facility] Hct 33.4(L) 38.9 - 50.3 % [facility] Plt 111(L) 150 - 400 K/cumm [facility] MPV 8.6(L) 9.1 - 12.3 fL [facility] RBC 3.53(L) 4.30 - 5.80 M/cumm [facility] MCV 94.6 81.3 - 96.4 fL [facility] MCH 33.1 27.1 - 33.3 pg [facility] MCHC 35.0 32.3 - 35.7 g/dL [facility] RDW CV 11.9 11.1 - 14.9 % [facility] RDW SD 40.9 35.7 - 48.1 fL [facility] NRBC abs 0.00 0.00 - 0.01 K/cumm [facility] ANC Prelim 1.75 1.50 - 6.50 K/cumm [facility] Comment: Interpretive Data The rapid ANC is a preliminary automated count and may vary from the final ANC (Neut Abs) reported in the WBC differential that follows. Current interpretive data was last revised 2024. Blood 08/02/2024 2:28 PM CDT 08/02/2024 2:28 PM CDT Gerardo Champagne MD LAB BLOOD ORDERABLES Fin al Result Performing Organization Address City/[facility]/ZIP Co de Phone Number [facility] [address] [place] [address] * (ABNORMAL) Protein electrophoresis with reflex, serum with interpretation (08/02/2024 2:28 PM CDT) Protein, sr 5.7(L) 6.2 - 8.2 g/dL Albumin 3.5 3.2 - 5.0 g/dL [facility] Alpha-1 globulin 0.3 0.2 - 0.4 g/dL [facility] Alpha-2 globulin 0.6 0.5 - 1.0 g/dL [facility] Beta-1 globulin 0.4 0.3 - 0.6 g/dL [facility] Beta-2 globulin 0.3 0.2 - 0.6 g/dL [facility] Gamma globulin 0.6 0.5 - 1.7 g/dL [facility] Rstr Pk Gamma 0.2(H) 0.0 - 0.0 g/dL [facility] SPEP interp See Comment [facility] Comment:SPEP INTERPRETATION: Abnormal restricted peak in gamma region. History of monoclonal protein. Immunotyping See Immunotyping Results [facility] Blood 08/02/2024 2:28 PM CDT 08/02/2024 2:48 PM CDT Gerardo Champagne MD LAB BLOOD ORDERABLES Fin al Result Performing Organization Address [facility] Co de Phone Number [facility] [address] [facility] [place] [address] * Folate (08/02/2024 2:28 PM CDT) Pathologist [facility] Emergency Department Folic acid 8.3 >=5.0 ng/mL Blood 08/02/2024 2:28 PM CDT 08/02/2024 2:48 PM CDT Gerardo Champagne MD LAB BLOOD ORDERABLES Fin al Result Performing Organization Address [facility] Co de Phone Number [facility] [address] [facility] [place] [address] * Ferritin (08/02/2024 2:28 PM CDT) [facility] Ferritin 300 30 - 400 ng/mL Blood 08/02/2024 2:28 PM CDT 08/02/2024 2:48 PM CDT Gerardo Champagne MD LAB BLOOD ORDERABLES Fin al Result Performing Organization Address [facility] Co de Phone Number [facility] [address] [facility] [place] [address] * Vitamin B12 (08/02/2024 2:28 PM CDT) [facility] Vitamin B12 608 230 - 1,250 pg/mL Blood 08/02/2024 2:28 PM CDT 08/02/2024 2:48 PM CDT Gerardo Champagne MD LAB BLOOD ORDERABLES Fin al Result Performing Organization Address [facility] Co de Phone Number [facility] [address] [facility] [place] [address] * Renal function panel (08/02/2024 2:28 PM CDT) [facility] Sodium 141 135 - 145 mmol/L Potassium, pl 4.2 3.3 - 4.9 mmol/L [facility] Chloride 104 97 - 110 mmol/L [facility] CO2 26 22 - 32 mmol/L [facility] Anion gap 11 2 - 15 mmol/L [facility] BUN 12 6 - 25 mg/dL [facility] Creatinine 0.88 0.80 - 1.30 mg/dL [facility] Glucose 100 70 - 199 mg/dL [facility] Comment: Interpretive Data Fasting glucose >/= 126 [...] 2022. Calcium 9.2 8.5 - 10.3 mg/dL [facility] Phosphorus, pl 3.2 2.3 - 4.5 mg/dL [facility] Albumin 4.0 3.5 - 5.0 g/dL [facility] Blood 08/02/2024 2:28 PM CDT 08/02/2024 2:48 PM CDT us Gerardo Champagne MD LAB BLOOD ORDERABLES Fin al Result [facility] [address] [place] [address] * XR Chest Pa Lateral 2 Vw [...] ur Yellow Yellow Clarity, ur Clear Clear [facility] Specific gravity, ur 1.017 1.003 - 1.030 [facility] pH, urine 7.0 [facility] Comment: Interpretive Data U rine pH is affected by diet, medications, systemic acid-base disturbances, and renal tubular function. pH may affect urinary stone formation. For example, urine pH below 6.0 may help reduce the tendency for calcium phosphate stones and pH greater than 6.0 may reduce the tendency for uric acid stone formation. Source: [facility] [address] Current Interpretive Data was last revised on 2017 Protein, ur ql Negative Negative [facility] Glucose, ur ql Negative Negative [facility] Ketones, ur Negative Negative [facility] Bilirubin, ur Negative Negative [facility] Blood, ur Negative Negative [facility] Urobilinogen, ur <2.0 <2.0 mg/dL [facility] Nitrite, ur Negative Negative [facility] Leukocyte esterase, ur Negative Negative [facility] UA reflex comment Reflex conditions for microscopic UA and culture not met. [facility] Urine 07/04/2024 10:1 9 AM CDT 07/04/2024 10:24 AM CDT us Cammie Murillo MD LAB MICROBIOLOGY - GENERAL ORDERABLES Final Result [facility] [address] Department [place] [address] * (ABNORMAL) Drugs of Abuse Screen, Urine [...] 2022. Barbiturates, ur Not Detected CutOff 200ng/mL [facility] Comment: Interpretive Data - Barbiturates: Samples containing greater than 200 ng/mL secobarbital or other cross-reacting barbiturate compounds are reported as positive. False positive and false negative results are possible. Confirmatory testing required for definitive results. Current Interpretive Data was last reviewed 2022. Benzodiazepines, ur Screen Positive, presumptive (A) CutOff 100ng/mL [facility] Comment: Interpretive Data - Benzodiazepines: Samples containing greater than 100 ng/mL nordiazepam or other cross-reacting compounds are reported as positive. False positive and false negative results are possible. Confirmatory testing required for definitive results. Current Interpretive Data was last reviewed 2022. Cannabinoids, ur Not Detected CutOff 50 ng/mL [facility] Comment: Interpretive Data - Cannabinoids: Samples containing greater than 50 ng/mL delta-9 THC -COOH or other cross- reacting compounds are reported as positive. False positive and false negative results are possible. Confirmatory testing required for definitive results. Current Interpretive Data was last reviewed 2022. Cocaine, ur Not Detected CutOff 150ng/mL [facility] Comment: Interpretive Data - Cocaine: Samples containing greater than 150 ng/mL benzoylecgonine or other cross- reacting compounds are reported as positive. False positive and false negative results are possible. Confirmatory testing required for definitive results. Current Interpretive Data was last reviewed 2022. Fentanyl, Ur Not Detected CutOff 5 ng/mL [facility] Comment: Interpretive Data - Fentanyl: Samples containing greater than 5 ng/mL norfentanyl, fentanyl, or other cross-reacting fentanyl compounds are reported as positive. False positive and false negative results are possible. Confirmatory testing required for definitive results. Current Interpretive Data was last reviewed 2023. Methadone, ur Not Detected CutOff 300ng/mL [facility] Comment: Interpretive Data - Methadone: Samples containing greater than 300 ng/mL d,l-methadone or other cross-reacting compounds are reported as positive. False positive and false negative results are possible. Confirmatory testing required for definitive results. Current Interpretive Data was last reviewed 2022. Opiates, ur Not Detected CutOff 300ng/mL [facility] Comment: Interpretive Data - Opiates: Samples containing greater than 300 ng/mL morphine or other cross-reacting compounds are reported as positive. False positive and false negative results are possible. Confirmatory testing required for definitive results. Current Interpretive Data was last reviewed 2022. Oxycodone, ur Not Detected CutOff 100ng/mL [facility] Comment: Interpretive Data - Oxycodone: Samples containing greater than 100 ng/mL oxycodone or other cross-reacting compounds are reported as positive. False positive and false negative results are possible. Confirmatory testing required for definitive results. Current Interpretive Data was last reviewed 2022. Phencyclidine, ur Not Detected CutOff 25 ng/mL [facility] Comment: Interpretive Data - Phencyclidine: Samples containing greater than 25 ng/mL phencyclidine or other cross-reacting compounds are reported as positive. False positive and false negative results are possible. Confirmatory testing required for definitive results. Current Interpretive Data was last reviewed 2022. Urine Creatinine 105 mg/dL [facility] Comment: Interpretive Data Urine Creatinine: < 10 mg/dL is extremely dilute = or > 10 but < 20 mg/dL is dilute = or > 20 mg/dL is normal Current Interpretive Data was last revised on 2017. Urine 07/04/2024 10:1 9 AM CDT 07/04/2024 7:17 PM CDT Narrative [facility] - 07/04/2024 7:50 PM CDT Drug of Abuse screening is performed by immunoassay for medical purposes only. This is not to be used for Pain Management purposes. us Cammie Murillo MD LAB URINE ORDERABLES Final Result [facility] [address] [place] [address] * CT Head WO Contrast (07/04/2024 9:38 [...] in interpretation, copy and paste this link: [email or web address] Current Interpretive Data last revised 2020. Trop T hs delta 1 ng/L [facility] Trop T hs interp Insignificant [facility] Blood 07/04/2024 9:23 AM CDT 07/04/2024 9:30 AM CDT Result [facility] Cammie Murillo MD LAB BLOOD ORDERABLES Final Result Performing Organization Address [facility] Co de Phone Number [facility] [address] [place] [address] * Troponin T high-sensitivity series (baseline, 2hr, 4hr, 6hr) (07/04/2024 7:27 AM CDT) Trop T hs 7 <=22 ng/L Comment: Interpretive Data For further hscTnT resources including the diagnostic algorithm and an aid in interpretation, copy and paste this link: [email or web address] Current Interpretive Data last revised 2020. Blood 07/04/2024 7:27 AM CDT 07/04/2024 7:42 AM CDT Cammie Murillo MD LAB BLOOD ORDERABLES Final Result Performing Organization Address City/[facility]/ZIP Co de Phone Number [facility] [address] [place] [address] * eGFR (07/04/2024 7:27 AM CDT) Pathologist [facility] Emergency Department eGFR >90 >=60 mL/min/1. 73 m2 Comment: [...] BLOOD ORDERABLES Final Result Performing Organization Address [facility] Co de Phone Number [facility] [address] [place] [address] * Differential, auto (07/04/2024 7:27 AM CDT) Pathologist [facility] Emergency Department Neutrophil abs 2.59 1.50 - 6.50 K/cumm Imm gran abs 0.01 0.00 - 0.10 K/cumm [facility] Lymphocyte abs 1.60 0.80 - 3.30 K/cumm [facility] Monocyte abs 0.71 0.20 - 0.80 K/cumm [facility] Eosinophil abs 0.11 0.00 - 0.50 K/cumm [facility] Basophil abs 0.04 0.00 - 0.10 K/cumm [facility] Neutrophil pct 51.2 % [facility] Comment: Interpretive Data Percent cell count reference ranges are not reported, since discordance with absolute values may lead to misinterpretation of CBC data. Current Interpretive Data was last revised on 2017. Imm gran pct 0.2 % [facility] Comment: Interpretive Data Percent cell count reference ranges are not reported, since discordance with absolute values may lead to misinterpretation of CBC data. Current Interpretive Data was last revised on 2017. Lymphocyte pct 31.6 % [facility] Comment: Interpretive Data Percent cell count reference ranges are not reported, since discordance with absolute values may lead to misinterpretation of CBC data. Current Interpretive Data was last revised on 2017. Monocyte pct 14.0 % [facility] Comment: Interpretive Data Percent cell count reference ranges are not reported, since discordance with absolute values may lead to misinterpretation of CBC data. Current Interpretive Data was last revised on 2017. Eosinophil pct 2.2 % [facility] Comment: Interpretive Data Percent cell count reference ranges are not reported, since discordance with absolute values may lead to misinterpretation of CBC data. Current Interpretive Data was last revised on 2017. Basophil pct 0.8 % [facility] Comment: Interpretive Data Percent cell count reference ranges are not reported, since discordance with absolute values may lead to misinterpretation of CBC data. Current Interpretive Data was last revised on 2017. Blood 07/04/2024 7:27 AM CDT 07/04/2024 7:41 AM CDT us Cammie Murillo MD LAB BLOOD ORDERABLES Final Result [facility] [address] Department [place] [address] * (ABNORMAL) Thyroid Function [place] (07/04/2024 7:27 AM CDT) TSH 0.26(L) 0.30 - 4.20 mcIUnit/mL Blood 07/04/2024 7:27 AM CDT 07/04/2024 7:42 AM CDT Result [facility] Cammie Murillo MD LAB BLOOD ORDERABLES Final Result Performing Organization Address [facility]/ZIP Co de Phone Number [facility] [address] [place] [address] * (ABNORMAL) CBC with auto differential (07/04/2024 7:27 AM CDT) Pathologist [facility] WBC 5.06 3.80 - 9.90 K/cumm Hgb 13.6 13.0 - 17.5 g/dL [facility] Hct 38.8(L) 38.9 - 50.3 % [facility] Plt 158 150 - 400 K/cumm [facility] MPV 9.5 9.1 - 12.3 fL [facility] RBC 4.10(L) 4.30 - 5.80 M/cumm [facility] MCV 94.6 81.3 - 96.4 fL [facility] MCH 33.2 27.1 - 33.3 pg [facility] MCHC 35.1 32.3 - 35.7 g/dL [facility] RDW CV 11.4 11.1 - 14.9 % [facility] RDW SD 39.4 35.7 - 48.1 fL [facility] NRBC abs 0.00 0.00 - 0.01 K/cumm [facility] Blood 07/04/2024 7:27 AM CDT 07/04/2024 7:41 AM CDT Cammie Murillo MD LAB BLOOD ORDERABLES Final Result [facility] [address] [place], [place] [id number] * (ABNORMAL) T4, free (07/04/2024 7:27 AM CDT) Free T4 1.75(H) 0.90 - 1.70 ng/dL Blood 07/04/2024 7:27 AM CDT 07/04/2024 7:42 AM CDT Narrative [facility] - 07/04/2024 8:37 AM CDT This test was reflexed from a TSH result. Cammie Murillo MD LAB BLOOD ORDERABLES Final Result Performing Organization Address [facility] Co de Phone Number [facility] [address] [facility] [place], [place] [id number] * Lipase (07/04/2024 7:27 AM CDT) Pathologist [facility] Lipase 39 10 - 99 Units/L Blood 07/04/2024 7:27 AM CDT 07/04/2024 7:42 AM CDT Cammie Murillo MD LAB BLOOD ORDERABLES Final Result Performing Organization Address [facility] de Phone Number [facility] [address] [facility] [place] [address] * Ethanol (07/04/2024 7:27 AM CDT) Pathologist [facility] Ethanol <10 <=10 mg/dL Comment: Interpretive Data Legal limit of intoxication > or = 80 mg/dL Levels > or = 400 mg/dL are potentially TOXIC. Current interpretive data was last revised on 2018. Blood 07/04/2024 7:27 AM CDT 07/04/2024 7:42 AM CDT Cammie Murillo MD LAB BLOOD ORDERABLES Final Result Performing Organization Address [facility] Co de Phone Number [facility] [address] [facility] [place], [place] [id number] * (ABNORMAL) Comprehensive metabolic panel (07/04/2024 7:27 AM CDT) Pathologist [facility] Sodium 141 135 - 145 mmol/L Potassium, pl 3.9 3.3 - 4.9 mmol/L [facility] Chloride 106 97 - 110 mmol/L [facility] CO2 22 22 - 32 mmol/L [facility] Anion gap 13 2 - 15 mmol/L [facility] BUN 14 6 - 25 mg/dL [facility] Creatinine 0.73(L) 0.80 - 1.30 mg/dL [facility] Glucose 90 70 - 199 mg/dL [facility] Comment: Interpretive Data Fasting glucose >/= 126 [...] 2022. Calcium 8.9 8.5 - 10.3 mg/dL [facility] Bilirubin, total 0.6 0.1 - 1.2 mg/dL [facility] Protein, pl 6.2(L) 6.5 - 8.5 g/dL [facility] Albumin 3.6 3.5 - 5.0 g/dL [facility] Alk phos 88 40 - 130 Units/L [facility] ALT 19 7 - 55 Units/L [facility] AST 30 10 - 50 Units/L [facility] Comment:Slightly Hemolyzed S pecimen Blood 07/04/2024 7:27 AM CDT 07/04/2024 7:42 AM CDT us Cammie Murillo MD LAB BLOOD ORDERABLES Final Result [facility] [address] Department [place] [address] * ECG 12 lead (07/04/2024 7:06 AM CDT) 07/04/2024 7:06 AM CDT Narrative [facility] - 07/04/2024 6:31 PM CDT Vent Rate: 87 bpm RR Interval: 686 msec GA Interval: 190 msec QRS Duration: 96 msec QT Interval: 358 msec QTC Interval: 402 msec P-R-T [place]: 84 - 83 - 75 degrees IMPRESSION: SINUS RHYTHM NORMAL ECG Electronically Signed By: Marin Guevara [facility] Card us Cammie Murillo MD ECG ORDERABLES Final Resu lt [facility] * GI - RESULT (06/27/2024) Anatomical Region [...] MD LAB BLOOD ORDERABLES Final R esult [facility] [address] [place] [address] * (ABNORMAL) Differential, auto (06/09/2024 5:28 PM CDT) Neutrophil abs 3.30 1.50 - 6.50 K/cumm Imm gran abs 0.01 0.00 - 0.10 K/cumm [facility] Lymphocyte abs 1.62 0.80 - 3.30 K/cumm [facility] Monocyte abs 0.82(H) 0.20 - 0.80 K/cumm [facility] Eosinophil abs 0.06 0.00 - 0.50 K/cumm [facility] Basophil abs 0.03 0.00 - 0.10 K/cumm [facility] Neutrophil pct 56.6 % [facility] Comment: Interpretive Data Percent cell count reference ranges are not reported, since discordance with absolute values may lead to misinterpretation of CBC data. Current Interpretive Data was last revised on 2017. Imm gran pct 0.2 % [facility] Comment: Interpretive Data Percent cell count reference ranges are not reported, since discordance with absolute values may lead to misinterpretation of CBC data. Current Interpretive Data was last revised on 2017. Lymphocyte pct 27.7 % [facility] Comment: Interpretive Data Percent cell count reference ranges are not reported, since discordance with absolute values may lead to misinterpretation of CBC data. Current Interpretive Data was last revised on 2017. Monocyte pct 14.0 % [facility] Comment: Interpretive Data Percent cell count reference ranges are not reported, since discordance with absolute values may lead to misinterpretation of CBC data. Current Interpretive Data was last revised on 2017. Eosinophil pct 1.0 % [facility] Comment: Interpretive Data Percent cell count reference ranges are not reported, since discordance with absolute values may lead to misinterpretation of CBC data. Current Interpretive Data was last revised on 2017. Basophil pct 0.5 % [facility] Comment: Interpretive Data Percent cell count reference ranges are not reported, since discordance with absolute values may lead to misinterpretation of CBC data. Current Interpretive Data was last revised on 2017. Blood 06/09/2024 5:28 PM CDT 06/09/2024 6:06 PM CDT us Get Hartmann MD LAB BLOOD ORDERABLES Final R esult [facility] [address] [place] [address] * (ABNORMAL) Urinalysis reflex to microscopic and culture Urine (06/09/2024 5:28 PM CDT) Color, ur Straw Yellow Clarity, ur Clear Clear [facility] Specific gravity, ur 1.002(L) 1.003 - 1.030 [facility] pH, urine 6.5 [facility] Comment: Interpretive Data U rine pH is affected by diet, medications, systemic acid-base disturbances, and renal tubular function. pH may affect urinary stone formation. For example, urine pH below 6.0 may help reduce the tendency for calcium phosphate stones and pH greater than 6.0 may reduce the tendency for uric acid stone formation. Source: [facility] [place] Current Interpretive Data was last revised on 2017 Protein, ur ql Negative Negative [facility] Glucose, ur ql Negative Negative [facility] Ketones, ur Negative Negative [facility] Bilirubin, ur Negative Negative [facility] Blood, ur Negative Negative [facility] Urobilinogen, ur <2.0 <2.0 mg/dL [facility] Nitrite, ur Negative Negative [facility] Leukocyte esterase, ur Negative Negative [facility] UA reflex comment Reflex conditions for microscopic UA and culture not met. [facility] Urine 06/09/2024 5:28 PM CDT 06/09/2024 5:28 PM CDT Isiah Russell MD LAB MICROBIOLOGY - GEN ERAL ORDERABLES Final Result Performing Organization Address [facility]/ZIP Co de Phone Number [facility] [address] [place] [address] * (ABNORMAL) CBC with auto differential (06/09/2024 5:28 PM CDT) WBC 5.84 3.80 - 9.90 K/cumm Hgb 14.3 13.0 - 17.5 g/dL [facility] Hct 40.7 38.9 - 50.3 % [facility] Plt 151 150 - 400 K/cumm [facility] MPV 9.5 9.1 - 12.3 fL [facility] RBC 4.20(L) 4.30 - 5.80 M/cumm [facility] MCV 96.9(H) 81.3 - 96.4 fL [facility] MCH 34.0(H) 27.1 - 33.3 pg [facility] MCHC 35.1 32.3 - 35.7 g/dL [facility] RDW CV 11.6 11.1 - 14.9 % [facility] RDW SD 40.9 35.7 - 48.1 fL [facility] NRBC abs 0.00 0.00 - 0.01 K/cumm [facility] Blood Venous blood specimen / Unknown 06/09/2024 5:28 PM CDT 06/09/2024 6:06 PM CDT Isiah Russell MD LAB BLOOD ORDERABLES F inal Result Performing Organization Address City/[facility]/ZIP Co de Phone Number [facility] [address] [place] [address] * Lipase (06/09/2024 5:28 PM CDT) Lipase 35 10 - 99 Units/L Blood Venous blood specimen / Unknown 06/09/2024 5:28 PM CDT 06/09/2024 6:06 PM CDT Isiah Russell MD LAB BLOOD ORDERABLES F inal Result [facility] [address] [place] [address] * Comprehensive metabolic panel (06/09/2024 5:28 PM CDT) Pathologist [facility] Sodium 140 135 - 145 mmol/L Potassium, pl 3.8 3.3 - 4.9 mmol/L [facility] Chloride 102 97 - 110 mmol/L [facility] CO2 25 22 - 32 mmol/L [facility] Anion gap 13 2 - 15 mmol/L [facility] BUN 10 6 - 25 mg/dL [facility] Creatinine 0.86 0.80 - 1.30 mg/dL [facility] Glucose 73 70 - 199 mg/dL [facility] Comment: Interpretive Data Fasting glucose >/= 126 [...] 2022. Calcium 9.6 8.5 - 10.3 mg/dL [facility] Bilirubin, total 0.6 0.1 - 1.2 mg/dL [facility] Protein, pl 7.3 6.5 - 8.5 g/dL [facility] Albumin 4.3 3.5 - 5.0 g/dL [facility] Alk phos 83 40 - 130 Units/L [facility] ALT 17 7 - 55 Units/L [facility] AST 26 10 - 50 Units/L [facility] Blood 06/09/2024 5:28 PM CDT 06/09/2024 6:06 PM CDT Isiah Russell MD LAB BLOOD ORDERABLES F inal Result [facility] [address] [place] [address] * ECG 12 lead (06/09/2024 5:20 PM CDT) 06/09/2024 5:20 PM CDT Narrative [facility] - 06/10/2024 3:38 PM CDT Vent Rate: 58 bpm RR Interval: 1023 msec GA Interval: 203 msec QRS Duration: 105 msec QT Interval: 437 msec QTC Interval: 434 msec P-R-T [place]: 74 - 74 - 75 degrees IMPRESSION: SINUS BRADYCARDIA NONSPECIFIC T-WAVE ABNORMALITY BORDERLINE ECG Electronically Signed By: Mian Ambrosio MD Isiah Russell MD ECG ORDERABLES Final Result Performing Organization Address [facility] de Phone Number [facility] [employer] [facility] * PSA [...] ORDERABLES Final Res ult Performing Organization Address [facility] Co de Phone Number [facility] [address] [place] [address] * Hepatitis panel, acute (07/11/2021 10:17 AM CDT) Hep A IgM Nonreactive Nonreactive [facility] Comment: Interpretive Data: If Hep A IgM Ab is reported as Equivocal, a new sample should be drawn in two weeks for testing. Current interpretive data was last revised on 19. Hep B core IgM Nonreactive Nonreactive [facility] Comment: Interpretive Data If HepB Core IgM Ab is reported as Equivocal, a new sample should be drawn in two weeks for testing. Current interpretive data was last revised on 19. Hep C Ab Nonreactive Nonreactive [facility] Comment: Interpretive Data Nonreactive: Antibodies to HCV [...] last revised on 2019. 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) Anatomical Region Laterality Modality Other Narrative Procedure Note Yuri Martin MD - 2020 12:08 PM CST ENDOSCOPY LAB Patient Name: Al Day Procedure Date: 2020 12:08 PM Admit Type: Outpatient Room: [facility] Date of : 1965 Instrument Name: [...] Most Recently Relevant to Health Maintenance Insurance [place] [id number] Advance Directives For more information, please contact: [phone] * Full Code (Latest Code Status on File) Date Activated Date Inactivated Comments 2020 12:04 PM 2020 9:09 PM Care Teams Supervisor Special Education Relationship Specialty Start Date End Date Guru Lynch MD [address] [facility] [[email or web address] [address] [place] [address] PCP - General 03/11/16 Gerardo Champagne MD [address] [place] [address] Medical Oncologist/Rice Farmer Hematology and Oncology 06/27/21 Abhijit Hall MD [address] [place] [address] Offline Editor Cardiology 12/28/23
--- OUTSIDE RECORDS SUMMARY | 2024-08-16 18:06 | XMS_ITS | Referral Summary ---
Author Organization [facility] Address [address] [place] [address] Care Team Providers Care Reactor Technician Name Role Phone Guru Lynch MD Primary Care Provider [phone] Gerardo Champagne MD Unavailable Abhijit Hall MD Unavailable [phone] Encounters Date Type Department Care Team Description 08/09/2024 1:45 PM CDT Office Visit [facility] [address] [place] [id number] Gerardo Champagne MD Macrocytic anemia (Primary Dx); Thrombocytopenia, secondary; MGUS (monoclonal gammopathy of unknown significance) 08/02/2024 2:15 PM CDT Lab [facility] Lab [address] [place] [phone] Macrocytic anemia; Thrombocytopenia, secondary; MGUS (monoclonal gammopathy of unknown significance) 07/24/2024 12:30 PM CDT Office Visit [facility] [address] [place] [address] [address] [place] [address] Abhijit Hall MD 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 (Primary Dx); Mixed hyperlipidemia; Tingling in extremities; Bradycardia 07/04/2024 7:01 AM CDT - 07/04/2024 11:50 AM CDT Emergency [facility] Emergency Department [address] [place] [address] Cammie Murillo MD Dehydration (Primary Dx); Dizziness Discharge Disposition: Discharge to home or self care 06/27/2024 Orders Only [facility] Health Information Management [address] [place] [address] Guru Lynch MD 06/09/2024 5:49 PM CDT - 06/09/2024 9:23 PM CDT Emergency [facility] Emergency Department [address] [place] [address] Isiah Russell MD Abdominal pain [...] 1 tablet (100 mcg total) by mouth assistant controller before breakfast Active omeprazole (PriLOSEC) 40 mg [...] 2022 Assessment & Plan (02/16/2023 5:04 PM GYMNASTICS INSTRUCTOR): He is very concerned about cancer I [...] 04/10/2022 Assessment & Plan (04/10/2022 10:38 AM GYMNASTICS INSTRUCTOR): BMI is normal, today's instructions and counseling [...] to his neck along with diclofenac cream [id number] as directed. Rectal bleeding 04/05/2020 Overview (04/05/2020): Added automatically from request for surgery [id number] Hemorrhoids, internal, thrombosed 02/21/2019 Assessment & Plan (05/21/2020 4:23 PM CDT): Patient to try taking Benefiber as directed to see if this helps soften stools to prevent bleeding from hemorrhoids. May also use preparation H ihmk-agt-spwnulp for rectal irritation or bleeding hemorrhoids. Anorectal pain 02/21/2019 Coronary artery disease invo lving ottawa coronary artery of ottawa heart without angina pectoris 05/17/2017 Assessment & [...] 09/11/2016 Assessment & Plan (02/16/2023 5:04 PM GYMNASTICS INSTRUCTOR): BMI is normal, today's instructions and counseling include lifestyle education regarding diet Assessment & Plan (04/11/2021 10:04 AM GYMNASTICS INSTRUCTOR): BMI is normal, today's instructions and counseling include lifestyle education regarding diet Assessment & Plan (03/31/2019 10:19 AM GYMNASTICS INSTRUCTOR): BMI is normal, Today's instructions and counseling include lifestyle education regarding diet and exercise. Assessment & Plan (03/25/2018 10:28 AM GYMNASTICS INSTRUCTOR): BMI is elevated, Today's instructions and counseling include lifestyle education regarding diet and exercise as well as weight loss. Assessment & Plan (03/19/2017 4:59 PM GYMNASTICS INSTRUCTOR): BMI is elevated, Today's instructions and counseling [...] Hypothyroidism Assessment & Plan (02/18/2024 1:29 PM GYMNASTICS INSTRUCTOR): Clinically and biochemically euthyroid Continue levothyroxine 100 mcg daily TSH annually with Dr. Lynch. He will return to endocrine clinic as needed. Assessment & Plan (11/03/2023 3:44 PM CDT): Chronic, low TSH and high T4 on last blood work. Levothyroxine reduced to 100 mcg daily. Reassess levels today. Assessment & Plan (02/12/2023 2:27 PM GYMNASTICS INSTRUCTOR): Uncontrolled, labs in February 2023 showed suppressed [...] Hyperlipidemia Assessment & Plan (02/18/2024 1:29 PM GYMNASTICS INSTRUCTOR): Lab Results Component Value Date LDLCALC 44 [...] 02/26/2012 Assessment & Plan (02/12/2023 2:28 PM GYMNASTICS INSTRUCTOR): Lipids well controlled. LDL 60 Continue rosuvastatin [...] on file Legal Sex Male 1:38 AM GYMNASTICS INSTRUCTOR Gender Identity Not on file Sexual Orientation [...] anemia Thrombocytopenia, secondary COLONOSCOPY 2020 12:08 PM GYMNASTICS INSTRUCTOR from Last 3 Months or Most Recently Relevant to Health Maintenance Results * Immunotyping, serum with interpretation (08/02/2024 2:28 PM CDT) Pathologist [facility] Immunosubtraction See Comment Comment:Immunotyping Interpr etation: IgG Lambda Paraprotein Blood 08/02/2024 2:28 PM CDT 08/02/2024 2:48 PM CDT Narrative [facility] - 08/03/2024 12:23 PM CDT Reflex Immunotyping, Ser us Gerardo Champagne MD LAB BLOOD ORDERABLES Fin al Result [facility] [address] Department [place] [address] * Immunoglobulin profile (08/02/2024 2:28 PM CDT) Pathologist [facility] Immunoglobulin G 763 700 - 1,600 mg/dL Immunoglobulin A 149 70 - 400 mg/dL [facility] Immunoglobulin M 56 40 - 230 mg/dL [facility] Blood 08/02/2024 2:28 PM CDT 08/02/2024 2:48 PM CDT Gerardo Champagne MD LAB BLOOD ORDERABLES Fin al Result Performing Organization Address [facility] Co de Phone Number [facility] [address] [place] [address] * eGFR (08/02/2024 2:28 PM CDT) Pathologist [...] ORDERABLES Fin al Result Performing Organization Address [facility]/ZIP Co de Phone Number [facility] [address] Department [place] [address] * Differential, auto (08/02/2024 2:28 PM CDT) [...] ORDERABLES Fin al Result Performing Organization Address City/[facility]/ZIP Co de Phone Number [facility] [address] Department [place] [address] * Immunoglobulin free light chains (08/02/2024 2:28 PM CDT) [place]/Lambda ratio [facility] 0.98 0.26 - 1.65 Comment: Interpretive Data The Binding Site FreeLite assay procedure was used. Results from different manufacturers or methods may not be comparable. Serial testing should be performed using the same methods and instrumentation. Current Interpretive Data was last revised on 2023. Testing performed by: [facility], [address] [place] [address]., [address] [place] free light chain BJ 1.23 0.33 - 1.94 mg/dL [facility] Comment: Interpretive Data The Binding Site FreeLite assay procedure was used. Results from different manufacturers or methods may not be comparable. Serial testing should be performed using the same methods and instrumentation. Current Interpretive Data was last revised on 2023. Testing performed by: [facility], [address] [place]., [address] Lambda free light chain BJ 1.25 0.57 - 2.63 mg/dL [facility] Comment: Interpretive Data The Binding Site FreeLite assay procedure was used. Results from different manufacturers or methods may not be comparable. Serial testing should be performed using the same methods and instrumentation. Current Interpretive Data was last revised on 2023. Testing performed by: [facility], [address] [place]., [address] Blood 08/02/2024 2:28 PM CDT 08/02/2024 6:54 PM CDT us Gerardo Champagne MD LAB BLOOD ORDERABLES Fin al Result Performing Organization Address City/[facility]/ZIP Co de Phone Number [facility] [address] Department [place] [address] * Iron profile w/ IBC (08/02/2024 2:28 PM CDT) [facility] [place] [facility] Iron 80 50 - 150 mcg/dL TIBC 276 250 - 400 mcg/dL [facility] Transferrin saturation 29 20 - 50 % [facility] Blood 08/02/2024 2:28 PM CDT 08/02/2024 2:48 PM CDT us Gerardo Champagne MD LAB BLOOD ORDERABLES Fin al Result [facility] [address] Department [place] [address] * (ABNORMAL) CBC with auto differential (08/02/2024 2:28 PM CDT) [facility] [place] [facility] WBC 3.04(L) 3.80 - 9.90 K/cumm Hgb [...] ORDERABLES Fin al Result Performing Organization Address City/[facility]/ZIP Co de Phone Number [facility] [address] [place] [address] * (ABNORMAL) Protein electrophoresis with reflex, serum with interpretation (08/02/2024 2:28 PM CDT) [facility] Protein, sr 5.7(L) 6.2 - 8.2 g/dL [...] MD LAB BLOOD ORDERABLES Fin al Result [facility] [address] [employer] [place], [place] [id number] * Folate (08/02/2024 2:28 PM CDT) Pathologist [facility] Folic acid 8.3 >=5.0 ng/mL Blood 08/02/2024 2:28 PM CDT 08/02/2024 2:48 PM CDT Gerardo Champagne MD LAB BLOOD ORDERABLES Fin al Result Performing Organization Address City/[facility]/ZIP Co de Phone Number [facility] [address] [facility] [place] [address] * Ferritin (08/02/2024 2:28 PM CDT) Pathologist [facility] Ferritin 300 30 - 400 ng/mL Blood 08/02/2024 2:28 PM CDT 08/02/2024 2:48 PM CDT Gerardo Champagne MD LAB BLOOD ORDERABLES Fin al Result Performing Organization Address [facility] Co de Phone Number [facility] [address] [facility] [place] [address] * Vitamin B12 (08/02/2024 2:28 PM CDT) [facility] [place] [facility] Vitamin B12 608 230 - 1,250 pg/mL Blood 08/02/2024 2:28 PM CDT 08/02/2024 2:48 PM CDT Gerardo Champagne MD LAB BLOOD ORDERABLES Fin al Result Performing Organization Address [facility] Co de Phone Number [facility] [address] [facility] [place] [address] * Renal function panel (08/02/2024 2:28 PM CDT) [facility] [place] [facility] Sodium 141 135 - 145 mmol/L [...] us Gerardo Champagne MD LAB BLOOD ORDERABLES [facility] al Result [facility] [address] Department [place] [address] * XR Chest Pa Lateral 2 Vw [...] tendency for uric acid stone formation. Source: [facility] [place] Current Interpretive Data was last revised on [...] LAB MICROBIOLOGY - GENERAL ORDERABLES Final Result [facility] [address] Department [place] [address] * (ABNORMAL) Drugs of Abuse Screen, Urine [...] ORDERABLES Final Result [facility] [address] Department [place] [address] * CT Head WO Contrast (07/04/2024 9:38 [...] by: Shahbaz Eckert M.D. Cammie Murillo MD [facility] CT PROCEDURES Final Re sult * Troponin T high-sensitivity 2-hour (07/04/2024 9:23 AM CDT) Trop T hs 8 <=22 ng/L Comment: Interpretive Data For further hscTnT resources including the diagnostic algorithm and an aid in interpretation, copy and paste this link: https://nrl.[employer].org/show/hsTrop Current Interpretive Data last revised 2020. Trop T hs delta 1 ng/L [facility] Trop T hs interp Insignificant [facility] Blood 07/04/2024 9:23 AM CDT 07/04/2024 9:30 AM CDT Cammie Murillo MD LAB BLOOD ORDERABLES Final Result Performing Organization Address City/[facility]/ZIP Co de Phone Number [facility] [address] [place] [address] * Troponin T high-sensitivity series (baseline, 2hr, 4hr, 6hr) (07/04/2024 7:27 AM CDT) Pathologist [facility] Trop T hs 7 <=22 ng/L Comment: Interpretive Data For further hscTnT resources including the diagnostic algorithm and an aid in interpretation, copy and paste this link: https://nrl.[employer].org/show/hsTrop Current Interpretive Data last revised 2020. Blood 07/04/2024 7:27 AM CDT 07/04/2024 7:42 AM CDT Cammie Murillo MD LAB BLOOD ORDERABLES Final Result [facility] [address] [place] [address] * eGFR (07/04/2024 7:27 AM [...] [address] Department [place] [address] * Differential, auto (07/04/2024 7:27 AM CDT) [...] Final Result [facility] [address] [facility] [place] [address] * (ABNORMAL) Thyroid Function [place] (07/04/2024 7:27 AM CDT) TSH 0.26(L) 0.30 - 4.20 mcIUnit/mL Blood 07/04/2024 7:27 AM CDT 07/04/2024 7:42 AM CDT Cammie Murillo MD LAB BLOOD ORDERABLES Final Result Performing Organization Address City/[facility]/ZIP Co de Phone Number [facility] [address] [place] [address] * (ABNORMAL) CBC with auto differential (07/04/2024 7:27 AM CDT) [facility] WBC 5.06 3.80 - 9.90 K/cumm [...] BLOOD ORDERABLES Final Result Performing Organization Address [facility] Co de Phone Number [facility] [address] Department [place] [address] * (ABNORMAL) T4, free (07/04/2024 7:27 AM CDT) [facility] Free T4 1.75(H) 0.90 - 1.70 ng/dL Blood 07/04/2024 7:27 AM CDT 07/04/2024 7:[address] [facility] - 07/04/2024 8:37 AM CDT This test was reflexed from a TSH result. Cammie Murillo MD LAB BLOOD ORDERABLES Final Result Performing Organization Address City/[facility] Co de Phone Number [facility] [address] [facility] [place] [address] * Lipase (07/04/2024 7:27 AM CDT) [facility] Lipase 39 10 - 99 Units/L Blood 07/04/2024 7:27 AM CDT 07/04/2024 7:42 AM CDT Cammie Murillo MD LAB BLOOD ORDERABLES Final Result Performing Organization Address [facility] de Phone Number [facility] [address] [facility] [place] [address] * Ethanol (07/04/2024 7:27 AM CDT) [facility] Ethanol <10 <=10 mg/dL Comment: Interpretive Data Legal limit of intoxication > or = 80 mg/dL Levels > or = 400 mg/dL are potentially TOXIC. Current interpretive data was last revised on 2018. Blood 07/04/2024 7:27 AM CDT 07/04/2024 7:42 AM CDT Cammie Murillo MD LAB BLOOD ORDERABLES Final Result Performing Organization Address [facility] Co de Phone Number [facility] [address] [place] [address] * (ABNORMAL) Comprehensive metabolic panel (07/04/2024 7:27 AM CDT) [facility] Sodium 141 135 - 145 mmol/L [...] [address] Department [place] [address] * ECG 12 lead (07/04/2024 7:06 AM CDT) 07/04/2024 7:06 AM CDT Narrative [facility] - 07/04/2024 6:31 PM CDT Vent Rate: 87 bpm RR Interval: 686 msec NV Interval: 190 msec QRS Duration: 96 msec QT Interval: 358 msec QTC Interval: 402 msec P-R-T Ryan: 84 - 83 - 75 degrees IMPRESSION: SINUS RHYTHM NORMAL ECG Electronically Signed By: Marin Guevara [facility] Card us Cammie Murillo MD ECG ORDERABLES Final Resu lt [facility] * GI - RESULT (06/27/2024) Anatomical [...] [address] Department [place] [address] * (ABNORMAL) Differential, auto (06/09/2024 5:28 PM [...] [address] Department [place] [address] * (ABNORMAL) Urinalysis reflex to microscopic and [...] tendency for uric acid stone formation. Source: [facility] Current Interpretive Data was last revised on [...] HOSPITAL [address] [place] [address] * (ABNORMAL) CBC with auto differential (06/09/2024 5:28 PM CDT) Pathologist [facility] WBC 5.84 3.80 - 9.90 K/cumm Hgb [...] ORDERABLES F inal Result Performing Organization Address [facility]/ZIP Co de Phone Number [facility] [address] [place] [address] * Lipase (06/09/2024 5:28 PM CDT) Pathologist [facility] Lipase 35 10 - 99 Units/L Blood Venous blood specimen / Unknown 06/09/2024 5:28 PM CDT 06/09/2024 6:06 PM CDT Isiah Russell MD LAB BLOOD ORDERABLES F inal Result Performing Organization Address City/[facility] Co de Phone Number [facility] [address] Department [place] [address] * Comprehensive metabolic panel (06/09/2024 5:28 PM [...] ORDERABLES F inal Result Performing Organization Address [facility]/ZIP Co de Phone Number [facility] [address] [place] [address] * ECG 12 lead (06/09/2024 5:20 PM CDT) 06/09/2024 5:20 PM CDT Narrative [facility] - 06/10/2024 3:38 PM CDT Vent Rate: 58 bpm RR Interval: 1023 msec NV Interval: 203 msec QRS Duration: 105 msec QT Interval: 437 msec QTC Interval: 434 msec P-R-T Ryan: 74 - 74 - 75 degrees IMPRESSION: SINUS BRADYCARDIA NONSPECIFIC T-WAVE ABNORMALITY BORDERLINE ECG Electronically Signed By: Mian Ambrosio MD us Isiah Russell MD ECG ORDERABLES Final Result Performing Organization Address City/[facility] Co de Phone Number [facility] * PSA screen (12/07/2023 9:14 AM CDT) [...] LAB BLOOD ORDERABLES Final Res ult [facility] [address] Department [place] [address] * Hepatitis panel, acute (07/11/2021 10:17 AM CDT) Hep A IgM Nonreactive Nonreactive [facility] Comment: Interpretive Data: If Hep A IgM Ab is reported as Equivocal, a new sample should be drawn in two weeks for testing. Current interpretive data was last revised on 19. Hep B core IgM Nonreactive Nonreactive [facility] Comment: Interpretive Data If HepB Core IgM [...] ORDERABLES Final Result [facility] [address] Department [place] [address] * COLONOSCOPY (2020 12:08 PM GYMNASTICS INSTRUCTOR) Anatomical Region Laterality Modality Other Narrative Procedure Note Yuri Martin MD - 2020 12:08 PM CST ENDOSCOPY LAB Patient Name: Al Day Procedure Date: 2020 12:08 PM Admit Type: Outpatient Room: [facility] Date of : 1965 Instrument Name: [id number] [...] Most Recently Relevant to Health Maintenance Insurance [facility] CHOICE PLUS [facility] CHOICE PLUS Member Subscriber Plan / Payer (Ef fective 2022-Present) Name:Al Day Relation to Subscriber:Self Name:Al Day Payer ID:[id number] (NAIC) Type:[facility] HMO/PPO Address: [place] [phone] [facility] CHOICE PLUS Advance Directives For more information, please contact: [phone] * Full Code (Latest Code Status on File) Date Activated Date Inactivated Comments 2020 12:04 PM 2020 9:09 PM Care Teams Reactor Technician Relationship Specialty Start Date End Date Guru Lynch MD [address] [facility] [address] [place] [address] PCP - General 03/11/16 Gerardo Champagne MD [address] [place] [place] [address] Medical Oncologist/Structural Engineer Hematology and Oncology 06/27/21 Abhijit Hall MD [address] [facility] [address] [place] [address] Delinquent Notice Machine Operator Cardiology 12/28/23
--- OUTSIDE RECORDS SUMMARY | 2024-08-16 18:06 | XMS_ITS | Clinical Summary ---
Author Organization [facility] Address [address] [address] Care Team Providers Care Manual Machinist Name Role Phone Unavailable Primary Care Provider [...] complete this topic Insurance #1 [place] [id number] [employer] [place] HMO POS #[address] [place] [id number]
--- OUTSIDE RECORDS SUMMARY | 2024-08-16 18:06 | XMS_ITS | Encounter Summary ---
Author Organization [facility] Healthcare Address [address] [place] [address] Care Team Providers Care Linux Kernel Engineer Name Role Phone Guru Lynch MD Primary Care Provider [phone] Gerardo Champagne MD Unavailable [phone] Abhijit Hall MD Unavailable [phone] Encounter Details Date Type Department Care Team (Late st Contact Info) Description 07/18/2021 Telephone [facility] - Interventional Radiology [address] [place] [address] Liz Johansen, KATHLEEN Social History [...] on file Legal Sex Male 1:38 AM STUBBER Gender Identity Not on file Sexual Orientation Not on file documented as of this encounter Plan of Treatment Scheduled Procedures Name Priority Associated Diagnoses Date/Ti me ESOPHAGOGASTRODUODENOSCOPY Dysphagia documented as of this encounter Results * (ABNORMAL) CBC with auto differential (07/21/2021 9:01 AM CDT) WBC 3.4(L) 3.8 - 9.9 K/cumm [facility] Hgb 12.5(L) 13.0 - 17.5 g/dL [facility] Hct 35.3(L) 38.9 - 50.3 % [facility] Plt 137(L) 150 - 400 K/cumm [facility] MPV 8.7(L) 9.1 - 12.3 fL [facility] RBC 3.60(L) 4.30 - 5.80 M/cumm [facility] MCV 98.1(H) 81.3 - 96.4 fL [facility] MCH 34.7(H) 27.1 - 33.3 pg [facility] MCHC 35.4 32.3 - 35.7 g/dL [facility] RDW CV 12.2 11.1 - 14.9 % [facility] RDW SD 43.8 35.7 - 48.1 fL [facility] NRBC abs 0.00 0.00 - 0.01 K/cumm [facility] Blood 07/21/2021 9:01 AM CDT 07/21/2021 9:43 AM CDT us Gerardo Champagne MD LAB BLOOD ORDERABLES Fin al Result [facility] [address] Department [place] [address] documented in this encounter Visit Diagnoses Diagnosis Thrombocytopenia, unspecified- Primary documented in this encounter Care Teams Linux Kernel Engineer Relationship Specialty Start Date End Date Guru Lynch MD [address] [address] PCP - General 03/11/16 Gerardo Champagne MD [address] [place] [address] Medical Oncologist/Data Compiler Hematology and Oncology 06/27/21 Abhijit Hall MD [address] [place] [address] Casting Tester Cardiology 12/28/23 documented as of this encounter
== END 2024-08-16 16:29 | disposition home or self-care (01) ==
LOC: ANHED 16:24
PROVIDERS: Emergency Provider Physician Assistant
DX: T52.0X1A Toxic effect of petroleum products, accidental (unintentional), initial encounter (principal); L24.5 Irritant contact dermatitis due to other chemical products
CPT/HCPCS: 99283